=== PATIENT | female | born 1950 | race Caucasian/White ===

== ENCOUNTER 2016-11-21 14:48 | Emergency (ER) | payer OTHER ==
[2016-11-21] VITALS (7 sets, daily range): BP systolic 117–139; BP diastolic 57–91; PULSE 70–86; RESP 16–20; TEMP 98.4; O2SAT 97–100
[~2016-11-21] VITALS: Ht 165.1 cm; Wt 89.5 kg
[~2016-11-21 14:48] MED LIST: AMIT1TAB79 PO; AMOX500T PO; ASPI1TAB69 PO; BENZ100 PO; CARV3.125 PO; ESTR0.5T PO; FENO1TAB76 PO; IPRASOL INH; MEDR4PAK PO; MELO-1 PO; PROT40TA PO; SIMV40TA PO; ZANA4CAP PO
[2016-11-21] MEDS ORDERED: LEVA750T PO (15:15)
--- NOTE | 2016-11-21 15:40 | PD ---
HPI Chief Complaint: Respiratory Symptoms Time Seen by Provider: 15:15 Travel History International Travel<30 days: No Contact w/Intl Traveler<30days: No Traveled to known affect area: No History of Present Illness HPI 66yo F with PMH of COPD and fibromyalgia presents to the ED with multiple complaints today. Pt states she just does not feel well and has been to her PMD Dr. Leon multiple times. Pt was prescribed levaquin and states today is her 7th day. Pt states she is always sob but have been coughing more lately. + Throat pain with cough. +Diffuse chest pain for 2 weeks that has been intermittently there. Pain is worst while lying down. Pt also with suprapubic abdominal pain at homes. +Nausea. Denies any fever, vomiting, focal weakness or numbness. Pt does not know why she was on levaquin. Pt is not on any oxygen at home. PFSH Past Medical History Hx Anticoagulant Therapy: Yes (81 MG ASPIRIN, DAILY) Arthritis: Yes (KNEES AND HIPS) Autoimmune Disease: No Blood Disorders: No Anxiety: Yes Depression: Yes Heart Rhythm Problems: No Cancer: No Cardiac Catheterization: Yes Cardiovascular Problems: Yes (HTN) High Cholesterol: Yes Chemotherapy: No Chest Pain: Yes Congestive Heart Failure: No COPD: Yes Cerebrovascular Accident: No Diabetes: No Diminished Hearing: No Diverticulitis: Yes Endocrine: No Fibromyalgia: Yes Gastrointestinal Disorders: Yes GERD: No Genitourinary: Yes (occas. incon of urine) Headaches: Yes Hepatitis: No Hiatal Hernia: Yes Hypertension: Yes Immune Disorder: No Implanted Vascular Access Dvce: Yes Musculoskeletal: Yes Neurologic: Yes Psychiatric: Yes Respiratory: Yes (recent bronchitis) Immunizations Current: Yes Myocardial Infarction: No Radiation Therapy: No Seizures: No Ulcer: No Tetanus Vaccination: Unknown Influenza Vaccination: No PNEUMOCCOCAL Vaccine (Year): 1 ?: Not Menopausal: Yes Past Surgical History Abdominal Surgery: Yes (GALLBLADDER) AICD: No Cardiac Surgery: No Cholecystectomy: Yes Coronary Artery Bypass Graft: No Ear Surgery: No Endocrine Surgery: No Eye Surgery: No Genitourinary Surgery: Yes (ERCP) Gynecologic Surgery: No Hysterectomy: Yes Joint Replacement: Yes (RT KNEE) Neurologic Surgery: No Oral Surgery: Yes (TONSILLECTOMY) Pacemaker: No Thoracic Surgery: No Tonsillectomy: Yes Other Surgery: Yes (bilat knee ) Social History Alcohol Use: Yes (RARELY beer) Tobacco Use: No (quit 30 years ago) Substance Use: No Allergies-Medications (Allergen,Severity, Reaction): Coded Allergies: Robitussin (Verified Allergy, Severe, PASSES OUT, 11/21/16) Uncoded Allergies: ALL TUSSINS (Allergy, Mild, PASSES OUT, 08/11/16) . Reported Meds & Prescriptions Reported Meds & Active Scripts Active Duoneb (Ipratropium-Albuterol Neb) 0.5-2.5 Mg/3 Ml Neb 1 Nebule INH Q6HR NEB Reported Levaquin (Levofloxacin) 750 Mg Tab 750 Mg PO DAILY Meloxicam 15 Mg Tab 15 Mg PO DAILY PRN Zanaflex (Tizanidine HCl) 4 Mg Cap 4 Mg PO HS Estradiol 0.5 Mg Tab 0.5 Mg PO DAILY Aspirin 81 Mg Tabdr 81 Mg PO DAILY Medrol Dosepak (Methylprednisolone) 4 Mg Dspk 4 Mg PO DIRECTED Per Pharmacist direction Tessalon Perles (Benzonatate) 100 Mg Cap 100 Mg PO TID PRN Coreg (Carvedilol) Unknown Strength Tab Unknown Dose PO BID Tricor (Fenofibrate) Unknown Strength Tab Unknown Dose PO DAILY Tke with food. Protonix (Pantoprazole Sodium) 40 Mg Tab 40 Mg PO DAILY Simvastatin 40 Mg Tab 40 Mg PO HS Review of Systems Except as stated in HPI: all other systems reviewed are Neg Physical Exam Narrative GENERAL: 66yo F anxious appearing. SKIN: Warm and dry. HEAD: Atraumatic. Normocephalic. EYES: Pupils equal and round. No scleral icterus. No injection or drainage. ENT: No nasal bleeding or discharge. Mucous membranes pink and moist. NECK: Trachea midline. No JVD. CARDIOVASCULAR: Regular rate and rhythm. No murmur appreciated. RESPIRATORY: No accessory muscle use. Clear to auscultation. Breath sounds equal bilaterally. GASTROINTESTINAL: Abdomen soft, non-tender, nondistended. MUSCULOSKELETAL: No obvious deformities. No clubbing. No cyanosis. No edema. NEUROLOGICAL: Awake and alert. No obvious cranial nerve deficits. Motor grossly within normal limits. Normal speech. Data Data Last Documented VS Vital Signs Date Time Temp Pulse Resp B/P Pulse Ox O2 Delivery O2 Flow Rate FiO2 11/21/16 15:20 98 Nasal Cannula 2 11/21/16 15:10 16 11/21/16 14:52 98.4 75 117/57 Orders Complete Blood Count With Diff (11/21/16 15:35) Basic Metabolic Panel (Bmp) (11/21/16 15:35) B-Type Natriuretic Peptide (11/21/16 15:35) Act Partial Throm Time (Ptt) (11/21/16 15:35) Prothrombin Time / Inr (Pt) (11/21/16 15:35) Ckmb (Isoenzyme) Profile (11/21/16 15:35) Troponin I (11/21/16 15:35) Blood Culture (11/21/16 15:35) Iv Access Insert/Monitor (11/21/16 15:35) Electrocardiogram (11/21/16 15:35) Ecg Monitoring (11/21/16 15:35) Oximetry (11/21/16 15:35) Oxygen Administration (11/21/16 15:35) Chest, Single Ap (11/21/16 15:35) Sodium Chloride 0.9% Flush (Ns Flush) (11/21/16 15:45) Methylprednisolone So Succ Inj (Solumedr (11/21/16 15:45) Albuterol-Ipratropium Neb (Duoneb Neb) (11/21/16 15:45) Urinalysis - C+S If Indicated (11/21/16 15:35) Lactic Acid Sepsis Protocol (11/21/16 15:45) Lorazepam (Ativan) (11/21/16 17:00) Ketorolac Inj (Toradol Inj) (11/21/16 17:00) Labs Laboratory Tests Test 11/21/16 11/21/16 15:45 17:15 White Blood Count 3.9 TH/MM3 Red Blood Count 4.79 MIL/MM3 Hemoglobin 14.6 GM/DL Hematocrit 43.4 % Mean Corpuscular Volume 90.7 FL Mean Corpuscular Hemoglobin 30.5 PG Mean Corpuscular Hemoglobin 33.7 % Concent Red Cell Distribution Width 11.9 % Platelet Count 153 TH/MM3 Mean Platelet Volume 9.5 FL Neutrophils (%) (Auto) 77.5 % Lymphocytes (%) (Auto) 6.0 % Monocytes (%) (Auto) 7.2 % Eosinophils (%) (Auto) 8.9 % Basophils (%) (Auto) 0.4 % Neutrophils # (Auto) 3.1 TH/MM3 Lymphocytes # (Auto) 0.2 TH/MM3 Monocytes # (Auto) 0.3 TH/MM3 Eosinophils # (Auto) 0.3 TH/MM3 Basophils # (Auto) 0.0 TH/MM3 CBC Comment DIFF FINAL Differential Comment Prothrombin Time 11.8 SEC Prothromb Time International 1.1 RATIO Ratio Activated Partial 29.2 SEC Thromboplast Time Sodium Level 141 MEQ/L Potassium Level 3.5 MEQ/L Chloride Level 106 MEQ/L Carbon Dioxide Level 23.5 MEQ/L Anion Gap 12 MEQ/L Blood Urea Nitrogen 12 MG/DL Creatinine 0.86 MG/DL Estimat Glomerular Filtration 66 ML/MIN Rate Random Glucose 106 MG/DL Lactic Acid Level 1.0 mmol/L Calcium Level 8.7 MG/DL Total Creatine Kinase 89 U/L Troponin I LESS THAN 0.02 NG/ML B-Type Natriuretic Peptide 33 PG/ML Urine pH 5.5 Urine Protein TRACE mg/dL Urine Glucose (UA) NEG mg/dL Urine Ketones TRACE mg/dL Urine Occult Blood NEG Urine Nitrite NEG Urine Bilirubin SMALL Urine Leukocyte Esterase NEG MDM Medical Decision Making Medical Screen Exam Complete: Yes Emergency Medical Condition: Yes Interpretation(s) EKG: NSR 72bpm. Normal axis. Poor baseline. Q wave III. Laboratory Tests Test 11/21/16 11/21/16 15:45 17:15 White Blood Count 3.9 TH/MM3 (4.0-11.0) Red Blood Count 4.79 MIL/MM3 (4.00-5.30) Hemoglobin 14.6 GM/DL (11.6-15.3) Hematocrit 43.4 % (35.0-46.0) Mean Corpuscular Volume 90.7 FL (80.0-100.0) Mean Corpuscular Hemoglobin 30.5 PG (27.0-34.0) Mean Corpuscular Hemoglobin 33.7 % Concent (32.0-36.0) Red Cell Distribution Width 11.9 % (11.6-17.2) Platelet Count 153 TH/MM3 (150-450) Mean Platelet Volume 9.5 FL (7.0-11.0) Neutrophils (%) (Auto) 77.5 % (16.0-70.0) Lymphocytes (%) (Auto) 6.0 % (9.0-44.0) Monocytes (%) (Auto) 7.2 % (0.0-8.0) Eosinophils (%) (Auto) 8.9 % (0.0-4.0) Basophils (%) (Auto) 0.4 % (0.0-2.0) Neutrophils # (Auto) 3.1 TH/MM3 (1.8-7.7) Lymphocytes # (Auto) 0.2 TH/MM3 (1.0-4.8) Monocytes # (Auto) 0.3 TH/MM3 (0-0.9) Eosinophils # (Auto) 0.3 TH/MM3 (0-0.4) Basophils # (Auto) 0.0 TH/MM3 (0-0.2) CBC Comment DIFF FINAL Differential Comment Prothrombin Time 11.8 SEC (9.8-11.6) Prothromb Time International 1.1 RATIO Ratio Activated Partial 29.2 SEC Thromboplast Time (24.3-30.1) Sodium Level 141 MEQ/L (136-145) Potassium Level 3.5 MEQ/L (3.5-5.1) Chloride Level 106 MEQ/L (98-107) Carbon Dioxide Level 23.5 MEQ/L (21.0-32.0) Anion Gap 12 MEQ/L (5-15) Blood Urea Nitrogen 12 MG/DL (7-18) Creatinine 0.86 MG/DL (0.50-1.00) Estimat Glomerular Filtration 66 ML/MIN (>89) Rate Random Glucose 106 MG/DL (74-106) Lactic Acid Level 1.0 mmol/L (0.4-2.0) Calcium Level 8.7 MG/DL (8.5-10.1) Total Creatine Kinase 89 U/L (26-192) Troponin I LESS THAN 0.02 NG/ML (0.02-0.05) B-Type Natriuretic Peptide 33 PG/ML (0-100) Urine pH 5.5 (5.0-8.5) Urine Protein TRACE mg/dL (NEG-TRACE) Urine Glucose (UA) NEG mg/dL (NEG) Urine Ketones TRACE mg/dL (NEG) Urine Occult Blood NEG (NEG) Urine Nitrite NEG (NEG) Urine Bilirubin SMALL (NEG) Urine Leukocyte Esterase NEG (NEG) Last Impressions Chest X-Ray 11/21/16 3143 Signed Impressions: Service Date/Time: Monday, November 21, 2016 15:49 - CONCLUSION: No acute disease. Toym Coley Jr., MD Differential Diagnosis Anxiety vs. COPD exacerbation vs. Pneumonia vs. ACS Narrative Course 66yo F with fibromyalgia and COPD here with multiple complaints. Pt has close follow up with PMD and just went yesterday. She was saturating well but wanted 2L NC and states she feels better with it. Pt given duonebs x3 and methylprednisolone 60mg IV. Pt states she feels better after the treatment. O2sat is 98% on RA. Labs reviewed, WBC low at 3.9. BMP unremarkable. Lactic acid 1.0. BNP 33. Troponin is negative. CXR negative. Pt reevaluated at bedside, was tearful and felt something is wrong. [place] that this may be anxiety so ativan 0.5mg PO given. UA showed trace ketone. Negative leukocyte and nitrite. Pt reevaluated after ativan and toradol and feels much better. Pain has resolved and wants to go home. Lungs are still clear, will give few days of prednisone and ventolin refill. Return precautions given. Diagnosis Primary Impression: Viral bronchitis Patient Instructions: General Instructions Departure Forms: Tests/Procedures Additional Instructions: Please follow up with your PMD in 1-2 days. Return to the ED if symptoms worsen. Med/Other Pt SpecificInfo: Prescription(s) given Scripts Albuterol 18 GM Inh (Ventolin Hfa 18 GM Inh)90 Mcg/Act Aer2 Puff INH Q4H PRN ( SHORTNESS OF BREATH) #1 INHALER Ref 0 Prov:EndyGissell DO 11/21/16 Prednisone 20 Mg Tab20 Mg PO BID 5 Days Ref 0 Prov:Gissell Schumacher DO 11/21/16 Disposition: 01 DISCHARGE HOME Condition: Stable SchumacherGissell denise Nov 21, 2016 15:40
[2016-11-21] MEDS ORDERED: methylPREDNISolone SOD SUCC 125 MG/2 ML VIAL IVP ONE (15:45)
[2016-11-21] MEDS ORDERED: SODIUM CHLORIDE 0.9% FLUSH 5 ML FLUSH IVF PRN (15:45)
[2016-11-21] MEDS: RESP: ALBUTEROL 2.5 MG/IPRATROPIUM 0.5 MG NEB (SCH) INH ×3 (15:49→15:56)
[2016-11-21 16:01] LABS: AUTOMATED NEUTROPHIL # 3.1 TH/MM3 (1.8-7.7); BASOPHIL % 0.4 % (0.0-2.0); EOSINOPHIL # 0.3 TH/MM3 (0-0.4); EOSINOPHIL % 8.9 % (0.0-4.0); HEMATOCRIT 43.4 % (35.0-46.0); LYMPHOCYTE # 0.2 TH/MM3 (1.0-4.8); MEAN CELL VOLUME 90.7 FL (80.0-100.0); MEAN CORPUSCULAR HEMOGLOBIN 30.5 PG (27.0-34.0); MEAN CORPUSCULAR HGB CONC 33.7 % (32.0-36.0); MONO % 7.2 % (0.0-8.0); NEUT % 77.5 % (16.0-70.0); PLATELET COUNT 153 TH/MM3 (150-450); RED BLOOD COUNT 4.79 MIL/MM3 (4.00-5.30); RED CELL DISTRIBUTION WIDTH 11.9 % (11.6-17.2); WHITE BLOOD COUNT 3.9 TH/MM3 (4.0-11.0)
[2016-11-21 16:03] LABS: CHLORIDE 106 MEQ/L (98-107); POTASSIUM 3.5 MEQ/L (3.5-5.1); SODIUM (NA) 141 MEQ/L (136-145)
[2016-11-21 16:06] LABS: ANION GAP 12 MEQ/L (5-15); BICARBONATE 23.5 MEQ/L (21.0-32.0); BLOOD UREA NITROGEN 12 MG/DL (7-18)
[2016-11-21 16:08] LABS: HEMO FLAGS DIFF FINAL
[2016-11-21 16:10] LABS: GLOMERULAR FILTRATION RATE 66 ML/MIN (>89)
[2016-11-21 16:11] LABS: APTT (PATIENT) 29.2 SEC (24.3-30.1); INTERNATIONAL NORMALIZED RATIO 1.1 RATIO; PROTHROMBIN TIME - PATIENT 11.8 SEC (9.8-11.6)
[2016-11-21 16:26] LABS: CREATINE KINASE 89 U/L (26-192)
--- NOTE | 2016-11-21 16:34 | RADHPO ---
EXAM DATE/TIME: 11/21/2016 15:49 [facility] COMPARISON: CHEST SINGLE AP, October 05, 2015, 7:50. INDICATIONS : Short of breath. MEDICAL HISTORY : Hypertension. Chronic obstructive pulmonary disease. Hiatal hernia. SURGICAL HISTORY : None. ENCOUNTER: Initial ACUITY: 1 day PAIN SCORE: 0/10 LOCATION: Bilateral chest FINDINGS: A single view of the chest demonstrates the lungs to be symmetrically aerated without evidence of mas s, infiltrate or effusion. The cardiomediastinal contours are unremarkable. Osseous structures are intact. CONCLUSION: No acute disease. Tomy Coley Jr., MD on November 21, 2016 at 16:33 Board Certified Radiologist. This report was verified electronically.
[2016-11-21] MEDS ORDERED: KETOROLAC TROMETHAMINE 30 MG/ML (IVP) VIAL IV PUSH ONE (17:00)
[2016-11-21] MEDS ORDERED: LORazepam 0.5 MG TAB PO ONE (17:00)
[2016-11-21 17:40] LABS: BLOOD, URINE NEG (NEG); GLUCOSE,URINE NEG (NEG); KETONE, URINE TRACE mg/dL (NEG); NITRITE,URINE NEG (NEG); PH, URINE 5.5 (5.0-8.5)
[2016-11-21 17:49] LABS: URINE COLOR AMBER (YELLW/STRAW)
[2016-11-21 17:50] LABS: COMMENT (UR) CULT NOT INDICATED; CULTURE IF INDICATED CULT NOT INDICATED; RBC, URINE 0-3 /hpf (0-3); SQUAMOUS EPITHELIAL CELL URINE 0-5 /hpf (0-5)
[2016-11-21] MEDS ORDERED: VENTAER INH (17:55)
[2016-11-21] MEDS ORDERED: PRED20 PO (17:55)
--- NOTE | 2016-11-21 22:49 | EKG ---
Date Performed: 11/21/2016 Time Performed: 16:23:04 PTAGE: 66 years EKG: Sinus rhythm Inferior ST changes are nonspecific Borderline ECG PREVIOUS TRACING : 06/11/2016 17.33 Compared to the previous tracing, rate has increased DOCTOR: Arpan Go Interpretating Date/Time 11/21/2016 22:47:57
== END 2016-11-21 18:10 | disposition home or self-care (01) ==
LOC: PHED 14:48
DX: J20.8 Acute bronchitis due to other specified organisms (principal); E78.00 Pure hypercholesterolemia, unspecified; F41.8 Other specified anxiety disorders; I10 Essential (primary) hypertension; M79.7 Fibromyalgia; J44.0 Chronic obstructive pulmonary disease with (acute) lower respiratory infection; Z79.82 Long term (current) use of aspirin
CPT/HCPCS: 71010; 80048; 81001; 82550; 83605; 83880; 84484; 85025; 85610; 85730; 87040; 93005; 94640; 94664; 96374; 96375; 99284; J1885; J2930

== ENCOUNTER 2017-03-30 18:52 | Emergency (ER) | payer OTHER ==
[~2017-03-30] VITALS: Ht 162.6 cm; Wt 88.0 kg
[~2017-03-30 18:52] MED LIST changes: -AMIT1TAB79 PO; -AMOX500T PO; +LEVA750T PO; +PRED20 PO; +VENTAER INH
[2017-03-30 19:10] VITALS: BP 124/74; PULSE 84; RESP 20; TEMP 98.4; O2SAT 96
[2017-03-30] MEDS ORDERED: AMLO5TAB2 PO (19:28)
[2017-03-30] MEDS ORDERED: VOLT100T (19:28)
[2017-03-30] MEDS ORDERED: ENAL20TA PO (19:28)
[2017-03-30] MEDS ORDERED: TRAM50TA PO (19:28)
[2017-03-30] MEDS ORDERED: OXYB10TA PO (19:28)
--- NOTE | 2017-03-30 19:59 | PD ---
HPI Chief Complaint: Injury Time Seen by Provider: 19:30 Travel History International Travel<30 days: No Contact w/Intl Traveler<30days: No Traveled to known affect area: No History of Present Illness HPI 66-year-old female presents emergency department for evaluation of left foot pain. Patient reports that she was walking barefoot when she walked into a piece of furniture stubbing the left fifth toe. She reports that the toe was dislocated which she self reduced. She now has pain within the entire left foot. She denies numbness or tingling of the foot. She reports pain within the mid foot and left small toe. The pain is constant, nonradiating, aggravated by weightbearing and movement, no alleviating factors, severity 6 out of 10. PFSH Past Medical History Hx Anticoagulant Therapy: Yes (81 MG ASPIRIN, DAILY) Arthritis: Yes (KNEES AND HIPS) Autoimmune Disease: No Blood Disorders: No Anxiety: Yes Depression: Yes Heart Rhythm Problems: No Cancer: No Cardiac Catheterization: Yes Cardiovascular Problems: Yes (HTN) High Cholesterol: Yes Chemotherapy: No Chest Pain: Yes Congestive Heart Failure: No COPD: Yes Cerebrovascular Accident: No Diabetes: No Diminished Hearing: No Diverticulitis: Yes Endocrine: No Fibromyalgia: Yes Gastrointestinal Disorders: Yes GERD: No Genitourinary: Yes (occas. incon of urine) Headaches: Yes Hepatitis: No Hiatal Hernia: Yes Hypertension: Yes Immune Disorder: No Implanted Vascular Access Dvce: Yes Musculoskeletal: Yes Neurologic: Yes Psychiatric: Yes Respiratory: Yes (recent bronchitis) Immunizations Current: Yes Myocardial Infarction: No Radiation Therapy: No Seizures: No Ulcer: No PNEUMOCCOCAL Vaccine (Year): 1 Menopausal: Yes Past Surgical History Abdominal Surgery: Yes (GALLBLADDER) AICD: No Cardiac Surgery: No Cholecystectomy: Yes Coronary Artery Bypass Graft: No Ear Surgery: No Endocrine Surgery: No Eye Surgery: No Genitourinary Surgery: Yes (ERCP) Gynecologic Surgery: No Hysterectomy: Yes Joint Replacement: Yes (RT KNEE) Neurologic Surgery: No Oral Surgery: Yes (TONSILLECTOMY) Pacemaker: No Thoracic Surgery: No Tonsillectomy: Yes Other Surgery: Yes (bilat knee ) Social History Alcohol Use: Yes (RARELY beer) Tobacco Use: No (quit 30 years ago) Substance Use: No Allergies-Medications (Allergen,Severity, Reaction): Coded Allergies: Robitussin (Verified Allergy, Severe, PASSES OUT, 03/30/17) Uncoded Allergies: ALL TUSSINS (Allergy, Mild, PASSES OUT, 08/11/16) . Reported Meds & Prescriptions Reported Meds & Active Scripts Active Ventolin Hfa 18 GM Inh (Albuterol Sulfate) 90 Mcg/Act Aer 2 Puff INH Q4H PRN Duoneb (Ipratropium-Albuterol Neb) 0.5-2.5 Mg/3 Ml Neb 1 Nebule INH Q6HR NEB Reported Tramadol (Tramadol HCl) 50 Mg Tab 50 Mg PO Q6H PRN Oxybutynin ER 24 HR (Oxybutynin Chloride) 10 Mg Tab 20 Mg PO BID Voltaren-Xr (Diclofenac Sodium) 100 Mg Tab.er.24h Unknown Dose Enalapril (Enalapril Maleate) 20 Mg Tab 20 Mg PO DAILY Amlodipine (Amlodipine Besylate) 5 Mg Tab 5 Mg PO DAILY Meloxicam 15 Mg Tab 15 Mg PO DAILY PRN Estradiol 0.5 Mg Tab 0.5 Mg PO DAILY Tricor (Fenofibrate) Unknown Strength Tab 160 Mg PO DAILY Tke with food. Protonix (Pantoprazole Sodium) 40 Mg Tab 40 Mg PO DAILY Review of Systems General / Constitutional: No: Fever Eyes: No: Visual changes HENT: No: Headaches Cardiovascular: No: Chest Pain or Discomfort Respiratory: No: Shortness of Breath Gastrointestinal: No: Abdominal Pain Genitourinary: No: Dysuria Musculoskeletal: Positive: Other (left foot pain) Physical Exam Narrative GENERAL: Well-nourished, well-developed patient. SKIN: Focused skin assessment warm/dry. HEAD: Normocephalic. EYES: No scleral icterus. No injection or drainage. NECK: Supple, trachea midline. No JVD or lymphadenopathy. CARDIOVASCULAR: Regular rate and rhythm without murmurs, gallops, or rubs. RESPIRATORY: Breath sounds equal bilaterally. No accessory muscle use. GASTROINTESTINAL: Abdomen soft, non-tender, nondistended. MUSCULOSKELETAL: No cyanosis, or edema. Left foot: Mild swelling of the left small toe and mid foot. The area is tender to palpation. 2+ distal pulses. Extremity is neurovascular intact. Data Data Last Documented VS Vital Signs Date Time Temp Pulse Resp B/P Pulse Ox O2 Delivery O2 Flow Rate FiO2 03/30/17 19:10 98.4 84 20 124/74 96 Orders Foot, Complete ([id number]) (03/30/17 ) [facility] Medical Decision Making Medical Screen Exam Complete: Yes Emergency Medical Condition: Yes Differential Diagnosis Toe fracture versus contusion versus sprain Narrative Course 66 year old female presents emergency department for evaluation of left foot and toe pain status post stubbing the toe on a piece of furniture. On exam the patient has mild swelling of the left fifth toe. X-ray pending X-ray of left foot fracture of the left proximal phalanx. Patient placed in postop boot, given crutches, instructed to follow up with orthopedic/podiatry this week. Diagnosis Primary Impression: Fracture of proximal phalanx of toe Referrals: Orthopedist Engineer First Assistant Additional Instructions: With a postop boot. He is crutches for weightbearing. Ice and elevate the extremity. Take the pain medication as prescribed. Follow-up with orthopedic or podiatry this week. Return to emergency department if he had no worsening symptoms. Scripts Hydrocodone-Acetaminophen ([place])5-325 mg Tab1 Tab PO Q6H PRN (PAIN) #12 TAB Ref 0 Prov:Flaquita Yuen 03/30/17 Disposition: 01 DISCHARGE HOME Condition: Stable Flaquita Yuen Mar 30, 2017 19:59
--- NOTE | 2017-03-30 20:33 | RADRPT ---
EXAM DATE/TIME: 03/30/2017 19:48 [facility] COMPARISON: No previous studies available for comparison. INDICATIONS : Left foot pain. MEDICAL HISTORY : Hypertension. Chronic obstructive pulmonary disease. SURGICAL HISTORY : None. ENCOUNTER: Initial ACUITY: 1 day PAIN SCORE: 10/10 LOCATION: Left Foot FINDINGS: There is no oblique fracture through the mid and distal aspect of the fifth proximal phalanx. The dis sunni fragment is angulated laterally. The fracture does not appear to extend into the joint space. CONCLUSION: Fracture at the fifth proximal phalanx. Goldy Morris MD on March 30, 2017 at 20:30 Board Certified Radiologist. This report was verified electronically.
[2017-03-30] MEDS ORDERED: NORC5TAB PO (20:41)
[2017-03-30] MEDS ORDERED: ACETAMINOPHEN/HYDROcodone 325 MG/5 MG TAB PO ONE (21:00)
== END 2017-03-30 21:34 | disposition home or self-care (01) ==
LOC: PHEFT 18:52
DX: S92.512A Displaced fracture of proximal phalanx of left lesser toe(s), initial encounter for closed fracture (principal); W22.03XA Walked into furniture, initial encounter; Y93.9 Activity, unspecified; Y92.9 Unspecified place or not applicable; Y99.9 Unspecified external cause status
CPT/HCPCS: 73630; 99283

== ENCOUNTER 2017-11-06 16:40 | Inpatient (IN) | payer OTHER, MEDICARE ==
[2017-11-06] VITALS (12 sets, daily range): BP systolic 108–195; BP diastolic 60–96; PULSE 77–162; RESP 16–20; TEMP 98.3–98.9; O2SAT 95–99
[~2017-11-06] VITALS: Ht 165.1 cm; Wt 85.2 kg
[~2017-11-06 16:40] MED LIST changes: +AMLO5TAB2 PO; -ASPI1TAB69 PO; -BENZ100 PO; -CARV3.125 PO; +ENAL20TA PO; -LEVA750T PO; -MEDR4PAK PO; -MELO-1 PO; +MELO15TA20 PO; +NORC5TAB PO; +OXYB10TA PO; -PRED20 PO; -SIMV40TA PO; +TRAM50TA PO; +VOLT100T; -ZANA4CAP PO
[2017-11-06] MEDS ORDERED: DILTIAZEM HCL 25 MG/5 ML VIAL IV ONE ×2 (17:00→17:30)
[2017-11-06] MEDS ORDERED: SODIUM CHLORIDE 0.9% FLUSH 10 ML FLUSH IVF PRN (17:00)
[2017-11-06] MEDS ORDERED: SODIUM CHLORIDE 0.9% FLUSH 10 ML FLUSH IV FLUSH PRN ×3 (17:00→18:15)
--- NOTE | 2017-11-06 17:09 | PD ---
HPI Chief Complaint: Cardiac Complaint Time Seen by Provider: 16:48 Travel History International Travel<30 days: No Contact w/Intl Traveler<30days: No History of Present Illness HPI 67 y/o female presents with palpitations shortly prior to arrival. She states she went to her primary doctor today because she felt lightheaded after getting exposed to Cl[place] and he checked her out and sent her home. She states shortly after her appointment today she developed the symptoms. She denies prior history of A. fib. She states that she has had a heart catheter before but does not follow with the second behavioral health associate. She denies any chest pain or other specific complaints at this time. Quality is palpitations. Severity is up into the 180s. She does note receiving Cardizem in the past but states it made her heart rate dropped in the 40s. PFSH Past Medical History Hx Anticoagulant Therapy: Yes (81 MG ASPIRIN, DAILY) Arthritis: Yes (KNEES AND HIPS) Autoimmune Disease: No Blood Disorders: No Anxiety: Yes Depression: Yes Heart Rhythm Problems: No Cancer: No Cardiac Catheterization: Yes Cardiovascular Problems: Yes (HTN) High Cholesterol: Yes Chemotherapy: No Chest Pain: Yes Congestive Heart Failure: No COPD: Yes Cerebrovascular Accident: No Diabetes: No Diminished Hearing: No Diverticulitis: Yes Endocrine: No Fibromyalgia: Yes Gastrointestinal Disorders: Yes GERD: No Genitourinary: Yes (occas. incon of urine) Headaches: Yes Hepatitis: No Hiatal Hernia: Yes Hypertension: Yes Immune Disorder: No Implanted Vascular Access Dvce: Yes Musculoskeletal: Yes Neurologic: Yes Psychiatric: Yes Respiratory: Yes (recent bronchitis) Immunizations Current: Yes Myocardial Infarction: No Radiation Therapy: No Seizures: No Ulcer: No PNEUMOCCOCAL Vaccine (Year): 1 Menopausal: Yes Past Surgical History Abdominal Surgery: Yes (GALLBLADDER) AICD: No Cardiac Surgery: No Cholecystectomy: Yes Coronary Artery Bypass Graft: No Ear Surgery: No Endocrine Surgery: No Eye Surgery: No Genitourinary Surgery: Yes (ERCP) Gynecologic Surgery: No Hysterectomy: Yes Joint Replacement: Yes (RT KNEE) Neurologic Surgery: No Oral Surgery: Yes (TONSILLECTOMY) Pacemaker: No Thoracic Surgery: No Tonsillectomy: Yes Other Surgery: Yes (bilat knee ) Social History Alcohol Use: Yes (RARELY beer) Tobacco Use: No (quit 30 years ago) Substance Use: No Allergies-Medications (Allergen,Severity, Reaction): Coded Allergies: guaifenesin (Unverified Allergy, Severe, PASSES OUT, 05/14/17) Uncoded Allergies: ALL TUSSINS (Allergy, Mild, PASSES OUT, 08/11/16) . Reported Meds & Prescriptions Reported Meds & Active Scripts Active [place] [employer] (Hydrocodone-Acetaminophen) 5-325 mg Tab 1 Tab PO Q6H PRN Ventolin Hfa 18 GM Inh (Albuterol Sulfate) 90 Mcg/Act Aer 2 Puff INH Q4H PRN Duoneb (Ipratropium-Albuterol Neb) 0.5-2.5 Mg/3 Ml Neb 1 Nebule INH Q6HR NEB Reported Tramadol (Tramadol HCl) 50 Mg Tab 50 Mg PO Q6H PRN Oxybutynin ER 24 HR (Oxybutynin Chloride) 10 Mg Tab 20 Mg PO BID Voltaren-Xr (Diclofenac Sodium) 100 Mg Tab.er.24h Unknown Dose Enalapril (Enalapril Maleate) 20 Mg Tab 20 Mg PO DAILY Amlodipine (Amlodipine Besylate) 5 Mg Tab 5 Mg PO DAILY Meloxicam 15 Mg Tab 15 Mg PO DAILY PRN Estradiol 0.5 Mg Tab 0.5 Mg PO DAILY Tricor (Fenofibrate) Unknown Strength Tab 160 Mg PO DAILY Tke with food. Protonix (Pantoprazole Sodium) 40 Mg Tab 40 Mg PO DAILY Review of Systems Except as stated in HPI: all other systems reviewed are Neg Physical Exam Narrative GENERAL: No apparent distress SKIN: Focused skin assessment warm/dry. HEAD: Atraumatic. Normocephalic. EYES: Pupils equal and round. No scleral icterus. No injection or drainage. ENT: No nasal bleeding or discharge. Mucous membranes pink and moist. NECK: Trachea midline. No JVD. CARDIOVASCULAR: irregular rate and rhythm. RESPIRATORY: No accessory muscle use. Clear to auscultation. Breath sounds equal bilaterally. GASTROINTESTINAL: Abdomen nondistended. MUSCULOSKELETAL: No obvious deformities. No clubbing. No cyanosis. No edema. NEUROLOGICAL: Awake and alert. No obvious cranial nerve deficits. Motor grossly within normal limits. Normal speech. PSYCHIATRIC: Appropriate mood and affect; insight and judgment normal. Data Data Last Documented VS Vital Signs Date Time Temp Pulse Resp B/P (MAP) Pulse Ox O2 Delivery O2 Flow Rate FiO2 11/06/17 17:57 124 108/67 11/06/17 17:23 98.3 18 96 11/06/17 16:55 Room Air Orders Orders Electrocardiogram (11/06/17 16:57) B-Type Natriuretic Peptide (11/06/17 16:57) Ckmb (Isoenzyme) Profile (11/06/17 16:57) Complete Blood Count With Diff (11/06/17 16:57) Comprehensive Metabolic Panel (11/06/17 16:57) Magnesium (Mg) (11/06/17 16:57) Prothrombin Time / Inr (Pt) (11/06/17 16:57) Act Partial Throm Time (Ptt) (11/06/17 16:57) Troponin I (11/06/17 16:57) Chest, Single Ap (11/06/17 16:57) Ecg Monitoring (11/06/17 16:57) Bilateral Bp Monitoring (11/06/17 16:57) Iv Access Insert/Monitor (11/06/17 16:57) Oximetry (11/06/17 16:57) Sodium Chloride 0.9% Flush (Ns Flush) (11/06/17 17:00) Sodium Chloride 0.9% Flush (Ns Flush) (11/06/17 17:00) Diltiazem Inj (Cardizem Inj) (11/06/17 17:00) Aspirin (Aspirin) (11/06/17 17:15) Diltiazem Inj (Cardizem Inj) (11/06/17 17:30) Diltiazem Drip Inj Premix (Cardizem Drip (11/06/17 17:30) Sodium Chloride 0.9% Flush (Ns Flush) (11/06/17 17:30) CKMB (11/06/17 17:00) CKMB% (11/06/17 17:00) Diltiazem Drip Inj Premix (Cardizem Drip (11/06/17 17:45) Sodium Chlor 0.9% 1000 Ml Inj (Ns 1000 M (11/06/17 17:45) Admit Order (Ed Use Only) (11/06/17 18:09) Diltiazem Drip Inj Premix (Cardizem Drip (11/06/17 18:15) Admit To Inpatient (11/06/17 ) Vital Signs (Adult) Q4H (11/06/17 18:14) Activity Oob Ad Tiana (11/06/17 18:14) Diet Heart Healthy (11/06/17 Dinner) Sodium Chloride 0.9% Flush (Ns Flush) (11/06/17 18:15) Sodium Chloride 0.9% Flush (Ns Flush) (11/06/17 21:00) Ondansetron Inj (Zofran Inj) (11/06/17 18:15) Temazepam (Restoril) (11/06/17 18:15) Basic Metabolic Panel (Bmp) (11/07/17 06:00) Complete Blood Count With Diff (11/07/17 06:00) Naloxone Inj (Narcan Inj) (11/06/17 18:15) Sennosides (Senokot) (11/06/17 18:15) Enalapril (Vasotec) (11/07/17 09:00) Meloxicam (Mobic) (11/06/17 18:15) Pantoprazole (Protonix) (11/07/17 09:00) (Nf) Fenofibrate (Tricor) (11/07/17 09:00) (Nf) Oxybutynin Er 24 Hr (11/06/17 21:00) Labs Laboratory Tests Test 11/06/17 17:00 White Blood Count 6.3 TH/MM3 Red Blood Count 4.68 MIL/MM3 Hemoglobin 14.4 GM/DL Hematocrit 42.4 % Mean Corpuscular Volume 90.7 FL Mean Corpuscular Hemoglobin 30.9 PG Mean Corpuscular Hemoglobin Concent 34.0 % Red Cell Distribution Width 11.8 % Platelet Count 217 TH/MM3 Mean Platelet Volume 9.7 FL Neutrophils (%) (Auto) 65.2 % Lymphocytes (%) (Auto) 23.0 % Monocytes (%) (Auto) 6.1 % Eosinophils (%) (Auto) 3.9 % Basophils (%) (Auto) 1.8 % Neutrophils # (Auto) 4.2 TH/MM3 Lymphocytes # (Auto) 1.4 TH/MM3 Monocytes # (Auto) 0.4 TH/MM3 Eosinophils # (Auto) 0.2 TH/MM3 Basophils # (Auto) 0.1 TH/MM3 CBC Comment DIFF FINAL Differential Comment Prothrombin Time 10.2 SEC Prothromb Time International Ratio 1.0 RATIO Activated Partial Thromboplast Time 27.8 SEC Blood Urea Nitrogen 19 MG/DL Creatinine 0.97 MG/DL Random Glucose 149 MG/DL Total Protein 7.7 GM/DL Albumin 3.9 GM/DL Calcium Level 9.6 MG/DL Magnesium Level 2.2 MG/DL Alkaline Phosphatase 145 U/L Aspartate Amino Transf (AST/SGOT) 45 U/L Alanine Aminotransferase (ALT/SGPT) 38 U/L Total Bilirubin 0.4 MG/DL Sodium Level 145 MEQ/L Potassium Level 3.5 MEQ/L Chloride Level 113 MEQ/L Carbon Dioxide Level 25.3 MEQ/L Anion Gap 7 MEQ/L Estimat Glomerular Filtration Rate 57 ML/MIN Total Creatine Kinase 172 U/L Creatine Kinase MB 2.1 NG/ML Troponin I LESS THAN 0.02 NG/ML B-Type Natriuretic Peptide 25 PG/ML MDM Medical Decision Making Medical Screen Exam Complete: Yes Emergency Medical Condition: Yes Medical Record Reviewed: Yes (Past history confirmed, cath from 2008 notes mild disease) Interpretation(s) EKG shows A. fib at [address] depression V2 through V6 without ST segment elevation CBC & BMP Diagram 11/06/17 17:00 Total Protein 7.7, Albumin 3.9, Calcium Level 9.6, Magnesium Level 2.2, Alkaline Phosphatase 145 H, Aspartate Amino Transf (AST/SGOT) 45 H, Alanine Aminotransferase (ALT/SGPT) 38, Total Bilirubin 0.4 Last 24 hours Impressions Chest X-Ray 11/06/17 1657 Signed Impressions: Service Date/Time: Monday, November 06, 2017 17:03 - CONCLUSION: No acute disease. Guille Milner MD FACR Differential Diagnosis A. fib with RVR, SVT, electrolyte abnormality, anemia.... Narrative Course We will check blood work, EKG, chest x-ray and dose with Cardizem and reevaluate Initial bolus of 20 mg and heart rate unchanged. Will now bolus with 30 mg and order drip after a total of 40mg of iv bolus heart rate 110 and sbp 100, will order ivf and start drip and admit to the hospital for further care Critical Care Narrative Aggregate critical care time was 31 minutes. Time to perform other separately billable procedures was not included in the critical care time. My time did not include minutes spent treating any other patients simultaneously or on activities that did not directly contribute to the patient's treatment. The services I provided to this patient were to treat and/or prevent clinically significant deterioration that could result in: Shock, I provided critical care services requiring my management, as noted below: Chart data review, documentation time, medication orders and management, vital sign assessments/reviewing monitor data, ordering and reviewing lab tests, ordering and interpreting/reviewing x-rays and diagnostic studies, care of the patient and discussion of the patient with the admitting physicians. Physician Communication Physician Communication dr plata agrees to admit Diagnosis Primary Impression: Atrial fibrillation with RVR Admitting Information Admitting Physician Requests: Admit Rosa Lainez MD Nov 06, 2017 17:09
[2017-11-06] MEDS ORDERED: ASPIRIN 325 MG TAB PO ONE (17:15)
[2017-11-06 17:18] LABS: CHLORIDE 113 MEQ/L (98-107); SODIUM (NA) 145 MEQ/L (136-145)
[2017-11-06 17:22] LABS: ALBUMIN 3.9 GM/DL (3.4-5.0); AUTOMATED NEUTROPHIL # 4.2 TH/MM3 (1.8-7.7); BASOPHIL # 0.1 TH/MM3 (0-0.2); BASOPHIL % 1.8 % (0.0-2.0); BICARBONATE 25.3 MEQ/L (21.0-32.0); CALCIUM 9.6 MG/DL (8.5-10.1); EOSINOPHIL # 0.2 TH/MM3 (0-0.4); EOSINOPHIL % 3.9 % (0.0-4.0); GLUCOSE,RANDOM 149 MG/DL (74-106); HEMATOCRIT 42.4 % (35.0-46.0); HEMOGLOBIN 14.4 GM/DL (11.6-15.3); LYMPHOCYTE # 1.4 TH/MM3 (1.0-4.8); MAGNESIUM 2.2 MG/DL (1.5-2.5); MEAN CELL VOLUME 90.7 FL (80.0-100.0); MEAN CORPUSCULAR HEMOGLOBIN 30.9 PG (27.0-34.0); MEAN PLATELET VOLUME 9.7 FL (7.0-11.0); MONO % 6.1 % (0.0-8.0); MONOCYTE # 0.4 TH/MM3 (0-0.9); NEUT % 65.2 % (16.0-70.0); PLATELET COUNT 217 TH/MM3 (150-450); RED BLOOD COUNT 4.68 MIL/MM3 (4.00-5.30); RED CELL DISTRIBUTION WIDTH 11.8 % (11.6-17.2); WHITE BLOOD COUNT 6.3 TH/MM3 (4.0-11.0)
[2017-11-06 17:23] LABS: BLOOD UREA NITROGEN 19 MG/DL (7-18)
[2017-11-06 17:25] LABS: ALT (GPT) 38 U/L (10-53); AST (GOT) 45 U/L (15-37); CREATININE 0.97 MG/DL (0.50-1.00); GLOMERULAR FILTRATION RATE 57 ML/MIN (>89)
[2017-11-06 17:27] LABS: TOTAL BILIRUBIN ADULT 0.4 MG/DL (0.2-1.0); TOTAL PROTEIN 7.7 GM/DL (6.4-8.2)
[2017-11-06 17:28] LABS: ALKALINE PHOSPHATASE 145 U/L (45-117)
[2017-11-06 17:30] LABS: TROPONIN I LESS THAN 0.02 NG/ML (0.02-0.05)
[2017-11-06] MEDS ORDERED: DILTIAZEM DRIP INJ PREMIX 125 ML IV PRN ×3 (17:30→18:15)
--- NOTE | 2017-11-06 17:40 | RADRPT ---
EXAM DATE/TIME: 11/06/2017 17:03 [facility] COMPARISON: CHEST SINGLE AP, November 21, 2016, 15:49. INDICATIONS : Chest pain, irregular heart rate for 2 hours MEDICAL HISTORY : Hypertension. Chronic obstructive pulmonary disease. Hiatal hernia SURGICAL HISTORY : None. ENCOUNTER: Initial ACUITY: 1 day PAIN SCORE: 10/10 LOCATION: Left chest FINDINGS: A single view of the chest demonstrates the lungs to be symmetrically aerated without evidence of mas s, infiltrate or effusion. The cardiomediastinal contours are unremarkable. Osseous structures are intact. CONCLUSION: No acute disease. Guille Milner MD FACR on November 06, 2017 at 17:38 Board Certified Radiologist. This report was verified electronically.
[2017-11-06 17:45] LABS: PROTHROMBIN TIME - PATIENT 10.2 SEC (9.8-11.6)
[2017-11-06] MEDS ORDERED: SODIUM CHLOR 0.9% 1000 ML INJ 1,000 ML IV ONE (17:45)
[2017-11-06] MEDS ORDERED: NALOXONE HCL 0.4 MG/ML AMP IV PUSH PRN (18:15)
[2017-11-06] MEDS ORDERED: MELOXICAM 15 MG TAB PO PRN (18:15)
[2017-11-06] MEDS ORDERED: SENNOSIDES 8.6 MG TAB PO PRN (18:15)
[2017-11-06] MEDS ORDERED: ONDANSETRON HCL 4 MG/2 ML VIAL IVP PRN (18:15)
[2017-11-06] MEDS ORDERED: RANI300T PO (19:02)
[2017-11-06] MEDS: SODIUM CHLORIDE 0.9% FLUSH 10 ML FLUSH IV FLUSH SCH (21:46)
[2017-11-06] MEDS ORDERED: FAMOTIDINE 20 MG TAB PO ONE (22:45)
[2017-11-07] VITALS (17 sets, daily range): BP systolic 107–145; BP diastolic 46–74; PULSE 55–120; RESP 14–35; TEMP 97.4–98.5; O2SAT 97–98
[2017-11-07] MEDS: TEMAZEPAM 15 MG CAP PO PRN ×2 (00:01→19:56)
[2017-11-07 04:40] LABS: AUTOMATED NEUTROPHIL # 3.3 TH/MM3 (1.8-7.7); BASOPHIL # 0.1 TH/MM3 (0-0.2); BASOPHIL % 1.4 % (0.0-2.0); EOSINOPHIL # 0.3 TH/MM3 (0-0.4); EOSINOPHIL % 4.9 % (0.0-4.0); HEMOGLOBIN 12.6 GM/DL (11.6-15.3); LYMPHOCYTE # 1.2 TH/MM3 (1.0-4.8); MEAN CELL VOLUME 92.4 FL (80.0-100.0); MEAN CORPUSCULAR HEMOGLOBIN 30.6 PG (27.0-34.0); MEAN CORPUSCULAR HGB CONC 33.2 % (32.0-36.0); MEAN PLATELET VOLUME 8.8 FL (7.0-11.0); MONOCYTE # 0.5 TH/MM3 (0-0.9); NEUT % 61.7 % (16.0-70.0); PLATELET COUNT 183 TH/MM3 (150-450); RED BLOOD COUNT 4.12 MIL/MM3 (4.00-5.30); RED CELL DISTRIBUTION WIDTH 12.1 % (11.6-17.2); WHITE BLOOD COUNT 5.4 TH/MM3 (4.0-11.0)
[2017-11-07 05:04] LABS: BICARBONATE 25.8 MEQ/L (21.0-32.0); CALCIUM 8.6 MG/DL (8.5-10.1); CREATININE 0.71 MG/DL (0.50-1.00)
[2017-11-07] MEDS: DILTIAZEM HCL 30 MG TAB PO SCH ×2 (05:53→11:40)
[2017-11-07] MEDS: ENALAPRIL MALEATE 10 MG TAB PO SCH (07:37)
[2017-11-07] MEDS: TOLTERODINE TARTRATE 4 MG CAP LA PO SCH (07:37)
[2017-11-07] MEDS: PANTOPRAZOLE SOD 40 MG DELAYED RELEASE TAB PO SCH (07:38)
[2017-11-07] MEDS: FENOFIBRATE 145 MG TAB PO SCH (07:38)
[2017-11-07] MEDS: SODIUM CHLORIDE 0.9% FLUSH 10 ML FLUSH IV FLUSH SCH ×2 (07:38→19:29)
[2017-11-07 11:36] LABS: TROPONIN I LESS THAN 0.02 NG/ML (0.02-0.05)
--- NOTE | 2017-11-07 13:30 | HHI.HP ---
[facility]Staff Ad[facility] Diagnosis afib with rvr Diagnoses: Travel History International Travel<30 Days: No Contact w/Intl Traveler <30 Da: No Traveled to Known Affected Are: No History of Present Illness History from patient, ER physician notes, and review medical records. reports she gets frequent palpitiation it just comes and goes a week ago, when she picked up the chlorine bottles, she had blurry vision, and neck pain strain every night, she stated she woke up with pain in the mid epigastric mid sternal area "hernia problem" . She saw GI doc and started zantac and pantoprazole- and seemed to be working, no further pain yesterday, when she was picking up grandagher, palpitiatons came, HR in 150s 160s did not resolve son in law thus brought her here no other symptoms no dehdyration no chagnes in meds recently used to be on coreg but was discontinued in december 2016 because of bradycardia in the 40s (has been taking it for about 10yrs before that) was seeing Dr Stanton and did have stress test in december 2016 Review of Systems Except as stated in HPI: all other systems reviewed are Neg Past Family Social History Past Medical History RLE DVT after knee surgery- but stated US was repeated 2 weeks ago, and xarelto stopped 2 weeks ago, completed it since march 2017 Htn was never told of Afib- but always had palpitations copd kidney stone frequent urination chronically Past Surgical History right knee replaced 11 yrs ago also right knee sx hysterectomy tonsilectomy cholecystectomy Allergies: Coded Allergies: guaifenesin (Unverified Allergy, Severe, PASSES OUT, 05/14/17) Uncoded Allergies: ALL TUSSINS (Allergy, Mild, PASSES OUT, 08/11/16) . Family History dad- chf mom- brain aneurysm, strokes brothers and sisters- dm Social History used to smoke, quit 33 yo social drinker no drugs lives with her daughter and her family Physical Exam Vital Signs Vital Signs Date Time Temp Pulse Resp B/P (MAP) Pulse Ox O2 Delivery O2 Flow Rate FiO2 11/07/17 11:00 68 11/07/17 07:47 69 11/07/17 07:29 97.9 66 28 136/74 (94) 11/07/17 06:00 62 11/07/17 05:00 62 11/07/17 04:19 55 116/57 11/07/17 04:15 58 11/07/17 04:00 98.4 58 14 116/57 (76) 97 11/07/17 04:00 55 11/07/17 02:49 55 102/52 11/07/17 02:16 58 11/07/17 02:00 58 11/07/17 01:00 60 11/07/17 00:00 98.2 120 20 107/46 (66) 97 11/07/17 00:00 120 11/06/17 23:00 86 11/06/17 22:00 98.9 88 19 141/74 (96) 99 11/06/17 21:40 11/06/17 21:30 130 107/42 11/06/17 19:31 77 18 136/72 (93) 97 Room Air 11/06/17 18:50 132 16 108/67 (81) 96 Room Air 11/06/17 18:29 128 16 127/86 (100) 95 Room Air 11/06/17 18:05 110 16 127/91 (103) 96 Room Air 11/06/17 17:57 124 108/67 11/06/17 17:35 101 18 135/60 (85) 97 Room Air 11/06/17 17:25 162 18 195/78 (117) 97 Room Air 11/06/17 17:23 98.3 154 18 195/94 (127) 96 11/06/17 17:10 146 18 166/96 (119) 95 Room Air 11/06/17 16:55 195/94 (127) 166/96 (119) 11/06/17 16:55 Room Air 11/06/17 16:55 20 97 Room Air 11/06/17 16:50 144 16 150/89 (109) 98 Room Air Physical Exam GENERAL: This is a well-nourished, well-developed patient, in no apparent distress. SKIN: No rashes, ecchymoses or lesions. Cool and dry. HEAD: Atraumatic. Normocephalic. No temporal or scalp tenderness. EYES: No scleral icterus. No injection or drainage. ENT: Nose without bleeding, purulent drainage or septal hematoma. Airway patent. NECK: Trachea midline. No JVD Supple, nontender, no meningeal signs. CARDIOVASCULAR: Regular rate and rhythm without murmurs, gallops, or rubs. RESPIRATORY: Clear to auscultation. Breath sounds equal bilaterally. No wheezes , rales, or rhonchi. GASTROINTESTINAL: Abdomen soft, non-tender, nondistended. No guarding. MUSCULOSKELETAL: Extremities without clubbing, cyanosis, or edema. No calf tenderness. NEUROLOGICAL: Awake and alert. Motor and sensory grossly within normal limits. Normal speech. Laboratory Laboratory Tests Test 11/06/17 17:00 11/07/17 04:25 11/07/17 11:00 White Blood Count 6.3 5.4 Red Blood Count 4.68 4.12 Hemoglobin 14.4 12.6 Hematocrit 42.4 38.0 Mean Corpuscular Volume 90.7 92.4 Mean Corpuscular Hemoglobin 30.9 30.6 Mean Corpuscular Hemoglobin Concent 34.0 33.2 Red Cell Distribution Width 11.8 12.1 Platelet Count 217 183 Mean Platelet Volume 9.7 8.8 Neutrophils (%) (Auto) 65.2 61.7 Lymphocytes (%) (Auto) 23.0 23.0 Monocytes (%) (Auto) 6.1 9.0 Eosinophils (%) (Auto) 3.9 4.9 Basophils (%) (Auto) 1.8 1.4 Neutrophils # (Auto) 4.2 3.3 Lymphocytes # (Auto) 1.4 1.2 Monocytes # (Auto) 0.4 0.5 Eosinophils # (Auto) 0.2 0.3 Basophils # (Auto) 0.1 0.1 CBC Comment DIFF FINAL DIFF FINAL Differential Comment Prothrombin Time 10.2 Prothromb Time International Ratio 1.0 Activated Partial Thromboplast Time 27.8 Blood Urea Nitrogen 19 17 Creatinine 0.97 0.71 Random Glucose 149 100 Total Protein 7.7 Albumin 3.9 Calcium Level 9.6 8.6 Magnesium Level 2.2 Alkaline Phosphatase 145 Aspartate Amino Transf (AST/SGOT) 45 Alanine Aminotransferase (ALT/SGPT) 38 Total Bilirubin 0.4 Sodium Level 145 145 Potassium Level 3.5 3.6 Chloride Level 113 113 Carbon Dioxide Level 25.3 25.8 Anion Gap 7 6 Estimat Glomerular Filtration Rate 57 82 Total Creatine Kinase 172 98 Creatine Kinase MB 2.1 Troponin I LESS THAN 0.02 LESS THAN 0.02 B-Type Natriuretic Peptide 25 Result Diagram: 11/07/1742411/07/17424 Caprin VTE Risk Assessment Caprini VTE Risk Assessment: Mod/High Risk (score >= 2) Caprini Risk Assessment Model Point Value = 1 Point Value = 2 Point Value = 3 Point Value = 5 Age 41-60 Minor surgery BMI > 25 kg/m2 Swollen legs Varicose veins or History of unexplained or recurrent spontaneous Oral contraceptives or hormone replacement Sepsis (< 1 month) Serious lung disease, including pneumonia (< 1 month) Abnormal pulmonary function Acute myocardial infarction Congestive heart failure (< 1 month) History of inflammatory bowel disease Medical patient at bed rest Age 61-74 Arthroscopic surgery Major open surgery (> 45 min) Laparoscopic surgery (> 45 min) Malignancy Confined to bed (> 72 hours) Immobilizing plaster cast Central venous access Age >= 75 History of VTE Family history of VTE Factor V Leiden Prothrombin [id number] Lupus anticoagulant Anticardiolipin antibodies Elevated serum homocysteine Heparin-induced thrombocytopenia Other congenital or acquired thrombophilia Stroke (< 1 month) Elective arthroplasty Hip, pelvis, or leg fracture Acute spinal cord injury (< 1 month) Prophylaxis Regimen Total Risk Factor Score Risk Level Prophylaxis Regimen 0-1 Low Early ambulation 2 Moderate Order ONE of the following: *Sequential Compression Device (SCD) *Heparin 5000 units SQ BID 3-4 Higher Order ONE of the following medications: *Heparin 5000 units SQ TID *Enoxaparin/Lovenox 40 mg SQ daily (WT < 150 kg, CrCl > 30 mL/min) *Enoxaparin/Lovenox 30 mg SQ daily (WT < 150 kg, CrCl > 10-29 mL/min) *Enoxaparin/Lovenox 30 mg SQ BID (WT < 150 kg, CrCl > 30 mL/min) AND/OR *Sequential Compression Device (SCD) 5 or more Highest Order ONE of the following medications: *Heparin 5000 units SQ TID (Preferred with Epidurals) *Enoxaparin/Lovenox 40 mg SQ daily (WT < 150 kg, CrCl > 30 mL/min) *Enoxaparin/Lovenox 30 mg SQ daily (WT < 150 kg, CrCl > 10-29 mL/min) *Enoxaparin/Lovenox 30 mg SQ BID (WT < 150 kg, CrCl > 30 mL/min) AND *Sequential Compression Device (SCD) Assessment and Plan Assessment and Plan Impression: A. fib with RVR. No obvious acute cause such as dehydration/blood loss/fevers. Possible underlying chronic A. fib with acute worsening. History of significant symptomatic bradycardia while on Coreg previously. We' ll need to watch for possible sick sinus syndrome. Hypertension RLE DVT after knee surgery- but stated US was repeated 2 weeks ago, and xarelto stopped 2 weeks ago, completed it since march 2017 COPD History of kidney stones Urinary frequency and incontinence. On Detrol at home. Plan: Serial enzymes and EKGs. Echocardiogram. At present, continue aspirin full dose. We'll need to decide on anticoagulation after echo. Cardiology consult with patient's packing checker. Would need to watch for bradycardia and tolerance to negative chronotropic medications. Continue to monitor on telemetry. We'll also need to monitor her blood pressure closely now that we are adding additional antihypertensive/negative chronotropic. Hold Norvasc. Hold meloxicam. Resume rest of medications. DVT prophylaxis with Lovenox. Discussed Condition With patient, ER physician Physician Certification 2 Midnight Certification Type: Admission for Inpatient Services Order for Inpatient Services The services are ordered in accordance with Medicare regulations or non- Medicare payer requirements, as applicable. In the case of services not specified as inpatient-only, they are appropriately provided as inpatient services in accordance with the 2-midnight benchmark. Estimated LOS (days): 3 days is the estimated time the patient will need to remain in the hospital, assuming treatment plan goals are met and no additional complications. Post-Hospital Plan: Home Qian Oliver MD Nov 07, 2017 13:30
[2017-11-07] MEDS ORDERED: ASPIRIN EC 325 MG TABEC PO ONE (14:00)
[2017-11-07] MEDS ORDERED: PILL SPLITTER OTHER PRN (14:15)
[2017-11-07] MEDS: DILTIAZEM-CD 120 MG CAP ER PO SCH (17:57)
[2017-11-07] MEDS: RIVAROXABAN 20 MG TAB PO SCH (17:57)
[2017-11-07] MEDS ORDERED: FAMOTIDINE 20 MG TAB PO SCH (21:00)
[2017-11-08] VITALS: BP 127/62; PULSE 86; RESP 18; TEMP 98.5; O2SAT 97
[2017-11-08 04:00] VITALS: BP 121/60; PULSE 78; RESP 17; TEMP 98.6; O2SAT 96
[2017-11-08 07:00] VITALS: PULSE 92
[2017-11-08 08:00] VITALS: BP 127/68; PULSE 76; RESP 28; TEMP 97.8
--- NOTE | 2017-11-08 08:00 | MB ---
cc: KRISTINA ANDRADE MD DATE OF CONSULTATION 11/07/2017 REASON FOR CONSULTATION New onset atrial fibrillation. HISTORY OF PRESENT ILLNESS Ms. Dill is a 67-year-old female who does have a history of hypertension, hyperlipidemia and COPD. She presented to the emergency room with palpitations. She has had several episodes. She noted that a week ago after she picked up some chlorine bottle, she had blurred vision. Currently she is asymptomatic. PAST MEDICAL HISTORY Significant for: 1. Hypertension 2. Hyperlipidemia 3. Aortic atherosclerosis 4. Bradycardia from beta-blockers term 5. Chest pain with a normal nuclear stress test and January 2017. 6. COPD 7. Diverticular disease 8. Fibromyalgia 9. Gastroesophageal reflux disease 10. Hiatal hernia 11. Irritable bowel 12. Mild mitral regurgitation 13. DVT PAST SURGICAL HISTORY Includes: 1. Cholecystectomy 2. ERCP 3. Hysterectomy 4. Knee surgery 5. Tonsillectomy SOCIAL HISTORY The patient is a former smoker. FAMILY HISTORY Positive for [place] in her mother. ALLERGIES ROBITUSSIN OUTPATIENT MEDICATIONS Include: 1. Enalapril 20 mg a day 2. Estradiol 3. Fenofibrate 4. Meloxicam 5. Nebulizer 6. Oxybutynin 7. Simvastatin 8. Tramadol 9. Amlodipine PHYSICAL EXAM VITAL SIGNS: Temperature 98.1, pulse 74, respiratory rate 20, blood pressure 137/60. GENERAL: She is a well-appearing female who is in no apparent distress. NECK: Her neck is free from JVD. LUNGS: The lungs are bilaterally clear to auscultation. CARDIOVASCULAR: On examination she has a normal S1 and S2. I did not appreciate any murmurs, rubs or gallops. ABDOMEN: The abdomen is soft. EXTREMITIES: The extremities are free from edema. Chest x-ray is negative for any acute disease. EKG shows normal sinus rhythm. Telemetry strips do show atrial fibrillation. IMPRESSION New-onset atrial fibrillation - The patient does have a history of palpitations and has never been diagnosed with atrial fibrillation. She is back in sinus rhythm currently. Her CHADS-VASc score is 3 or possibly 5 with a point for a female, hypertension, over 65, plus/minus two points for possible TIA. In any case, she would be best served with further anticoagulation. After discussion, she was recently on Xarelto and would prefer to be on that as she has many bottles at home. She is aware that there is no reversal agent. Her creatinine is normal. Regarding rate control, I would place her on low-dose Diltiazem and stop her Amlodipine. This will also necessitate changing of her simvastatin secondary medication interactions. Additionally, the patient has had a recent ischemia workup thus I do not feel we need that. A TSH in the morning would be helpful. If she remains in sinus rhythm, it would be reasonable for her to be discharged in the a.m. Hypertension - as above. We will discontinue the amlodipine to make room for the diltiazem. Lipids - Stop Simvastatin then start Atorvastatin secondary to med interactions. Kristina Andrade M.D. RACHEL/DAVIDA /4:09 PM /7:40 AM
[2017-11-08] MEDS: RIVAROXABAN 20 MG TAB PO SCH (08:26)
[2017-11-08] MEDS: SODIUM CHLORIDE 0.9% FLUSH 10 ML FLUSH IV FLUSH SCH (08:26)
[2017-11-08] MEDS: DILTIAZEM-CD 120 MG CAP ER PO SCH (08:26)
[2017-11-08] MEDS: PANTOPRAZOLE SOD 40 MG DELAYED RELEASE TAB PO SCH (08:27)
[2017-11-08] MEDS: TOLTERODINE TARTRATE 4 MG CAP LA PO SCH (08:27)
[2017-11-08] MEDS: ENALAPRIL MALEATE 10 MG TAB PO SCH (08:28)
[2017-11-08] MEDS: FENOFIBRATE 145 MG TAB PO SCH (08:28)
[2017-11-08] MEDS ORDERED: ENOXAPARIN SODIUM 40 MG/0.4 ML SYRINGE SQ SCH (09:00)
[2017-11-08] MEDS ORDERED: ASPIRIN EC 325 MG TABEC PO SCH (09:00)
[2017-11-08] MEDS ORDERED: ESTRADIOL 1 MG TAB PO SCH (09:00)
--- NOTE | 2017-11-08 09:22 | EKG ---
Date Performed: 11/06/2017 Time Performed: 16:56:12 PTAGE: 67 years EKG: ATRIAL FIBRILLATION WITH RAPID VENTRICULAR RESPONSE NONSPECIFIC ST & T-WAVE ABNORMALITY ABN ORMAL ECG Compared to PREVIOUS TRACING , the atrial fibrillation with rapid ventricular response has replaced S inus rhythm . ST changes are new, consider ischemia. PREVIOUS TRACIN11/21/2016 16.23 DOCTOR: Niko Perez Interpretating Date/Time 11/08/2017 09:21:41
--- NOTE | 2017-11-08 09:22 | EKG ---
Date Performed: 11/07/2017 Time Performed: 11:03:03 PTAGE: 67 years EKG: Sinus rhythm NONSPECIFIC T-WAVE ABNORMALITY BORDERLINE ECG Compared to PREVIOUS TRACING , sinus rhythm has replaced atrial fibrillation. Previously seen ST depr ession has improved. PREVIOUS TRACIN11/06/2017 16.56 DOCTOR: Niko Perez Interpretating Date/Time 11/08/2017 09:22:08
[2017-11-08] MEDS ORDERED: ACETAMINOPHEN 325 MG TAB PO PRN (10:45)
[2017-11-08 12:00] VITALS: BP 130/62; PULSE 82; RESP 21; TEMP 98.5
[2017-11-08] MEDS ORDERED: XARE20TA PO (12:58)
[2017-11-08] MEDS ORDERED: DILT120C50 PO (12:58)
[2017-11-08] MEDS ORDERED: ATOR40TA16 PO (12:59)
--- NOTE | 2017-11-08 12:59 | HHI.DCPOC ---
Discharge Care Plan Diagnosis: (1) Atrial fibrillation with RVR Goals to Promote Your Health * To prevent worsening of your condition and complications * To maintain your health at the optimal level Directions to Meet Your Goals Take your medications as prescribed Follow your dietary instruction Follow activity as directed Keep your appointments as scheduled Take your immunizations and boosters as scheduled If your symptoms worsen call your PCP, if no PCP go to Urgent Care Center or Emergency Room Smoking is Dangerous to Your Health. Avoid second hand smoke Call the 24-hour hour crisis hotline for domestic abuse at Swapnil Boo MD Nov 08, 2017 12:59
--- NOTE | 2017-11-08 13:02 | HHI.PR ---
Subjective Remarks Nursing denies any deterioration since last night. Stated the patient ambulated without difficult. Patient went to the home. Denies any palpitations this morning. Objective Vital Signs Date Time Temp Pulse Resp B/P (MAP) Pulse Ox O2 Delivery O2 Flow Rate FiO2 11/08/17 08:00 76 11/08/17 08:00 97.8 76 28 127/68 (87) 11/08/17 07:00 92 11/08/17 04:00 98.6 78 17 121/60 (80) 96 11/08/17 00:00 98.5 86 18 127/62 (83) 97 11/07/17 23:20 77 11/07/17 20:00 97.4 78 26 145/61 (89) 98 11/07/17 18:00 80 29 11/07/17 17:57 98.5 84 35 135/67 (89) 11/07/17 16:59 74 11/07/17 16:59 68 I/O 11/07/17 11/07/17 11/07/17 11/08/17 11/08/17 11/08/17 07:00 15:00 23:00 07:00 15:00 23:00 Intake Total 480 ml 600 ml Output Total 800 ml Balance -320 ml 600 ml Intake Oral 480 ml 600 ml Output Urine Total 800 ml # Voids 4 4 # Bowel Movements 0 1 Result Diagram: 11/07/17 0425 11/07/17 0425 Objective Remarks Heart sounds demonstrate regular rate rhythm, no murmurs Sitting up in bed, no acute distress, clear lungs bilaterally A/P Assessment and Plan No ischemic workup warranted per cardiology at this time. A. fib with RVR. Now clinically stable with Cardizem by mouth. Stable for discharge from cardiology standpoint. Patient will be resumed on her Xarelto upon discharge given her stroke risk. We'll also be discharged on Lipitor. stopping norvasc. Patient has been maximal benefit from hospitalization and is clinically stable for discharge. Swapnil Boo MD Nov 08, 2017 13:02
--- NOTE | 2017-11-08 18:51 | ECHRPT ---
Indication: a fib CONCLUSIONS The left ventricular systolic function is normal with an estimated ejection fraction in the range of 55-60%. Doppler parameters are consistent with impaired left ventricular relaxtion (grade 1 diastolic dysfun ction). Trace mitral valve regurgitation. There is mild tricuspid valve regurgitation. BP: / HR: Rhythm: MEASUREMENTS (Male / Female) Normal Values Technical Quality:Good 2D ECHO LV Diastolic Diameter PLAX 3.9 cm 4.2 - 5.9 / 3.9 - 5.3 cm LV Systolic Diameter PLAX 2.8 cm IVS Diastolic Thickness 1.3 cm 0.6 - 1.0 / 0.6 - 0.9 cm LVPW Diastolic Thickness 1.1 cm 0.6 - 1.0 / 0.6 - 0.9 cm LV Relative Wall Thickness 0.6 RV Internal Dim ED PLAX 3.2 cm M-MODE Aortic Root Diameter MM 2.7 cm LA Systolic Diameter MM 3.1 cm LA Ao Ratio MM 1.1 AV Cusp Separation MM 2.2 cm DOPPLER Mitral E Point Velocity 42.9 cm/s Mitral A Point Velocity 71.1 cm/s Mitral E to A Ratio 0.6 LV E' Lateral Velocity 6.9 cm/s Mitral E to LV E' Lateral Ratio 6.2 LV E' Septal Velocity 6.5 cm/s Mitral E to LV E' Septal Ratio 6.6 TR Peak Velocity 236.0 cm/s TR Peak Gradient 22.3 mmHg Right Atrial Pressure 10.0 mmHg Pulmonary Artery Systolic Pressu 32.3 mmHg Right Ventricular Systolic Press 32.3 mmHg FINDINGS LEFT VENTRICLE Normal left ventricular size. Mild concentric left ventricular hypertrophy. The left ventricular systolic function is normal with an estimated ejection fraction in the range of 55-60%. Doppler parameters are consistent with impaired left ventricular relaxtion (grade 1 diastolic dysfun ction). RIGHT VENTRICLE Normal right ventricular size and systolic function. LEFT ATRIUM The left atrial size is normal. RIGHT ATRIUM The right atrial size is normal. ATRIAL SEPTUM Normal atrial septal thickness without atrial level shunting by limited color doppler interrogation. AORTA The aortic root and proximal ascending aorta are normal in size on limited imaging. MITRAL VALVE Structurally normal mitral valve. Trace mitral valve regurgitation. No mitral valve stenosis. AORTIC VALVE Trileaflet aortic valve. No aortic valve stenosis or regurgitation. Aortic valve sclerosis is present. TRICUSPID VALVE Structurally normal tricuspid valve. There is mild tricuspid valve regurgitation. The estimated pulmonary arterial pressure is 32.3 mmHg. PULMONARY VALVE No pulmonary valve regurgitation or stenosis. VESSELS The inferior vena cava is normal in size. PERICARDIUM No pericardial effusion. Arpan Go DO (Electronically Signed) Final Date:08 November 2017 18:50
== END 2017-11-08 15:49 | disposition home or self-care (01) | DRG 310 ==
LOC: PHED 16:40 → PHEDA 18:10 → PHICU 21:26
PROVIDERS: ADMIT Hospitalist; ATTEND Hospitalist
DX: I48.91 Unspecified atrial fibrillation (principal); J44.9 Chronic obstructive pulmonary disease, unspecified; I10 Essential (primary) hypertension; M79.7 Fibromyalgia; E78.5 Hyperlipidemia, unspecified; I70.0 Atherosclerosis of aorta; K21.9 Gastro-esophageal reflux disease without esophagitis; I34.0 Nonrheumatic mitral (valve) insufficiency; M15.9 Polyosteoarthritis, unspecified; Z82.49 Family history of ischemic heart disease and other diseases of the circulatory system; Z86.718 Personal history of other venous thrombosis and embolism; Z87.891 Personal history of nicotine dependence; Z96.651 Presence of right artificial knee joint
CPT/HCPCS: 71045; 80048; 80053; 82550; 82552; 83735; 83880; 84484; 85025; 85610; 85730; 93005; 93306; 96374; 96375; J7030

== ENCOUNTER 2018-02-22 06:03 | Observation (INO) | payer MEDICARE, OTHER ==
[~2018-02-22] VITALS: Ht 165.1 cm; Wt 87.6 kg
[2018-02-22] VITALS (28 sets, daily range): BP systolic 98–156; BP diastolic 47–96; PULSE 52–155; RESP 16–39; TEMP 97.4–98.4; O2SAT 95–100
[~2018-02-22 06:03] MED LIST changes: -AMLO5TAB2 PO; +ATOR40TA16 PO; +DILT120C50 PO; -NORC5TAB PO; +RANI300T PO; -TRAM50TA PO; +XARE20TA PO
[2018-02-22] MEDS ORDERED: SODIUM CHLORIDE 0.9% FLUSH 10 ML FLUSH IVF PRN (06:15)
[2018-02-22] MEDS ORDERED: SODIUM CHLOR 0.9% 1000 ML INJ 1,000 ML IV SCH (06:15)
[2018-02-22] MEDS ORDERED: METOPROLOL TARTRATE 5 MG/5 ML VIAL IV PUSH ONE ×2 (06:15→06:45)
--- NOTE | 2018-02-22 06:51 | PD ---
HPI Chief Complaint: Cardiac Complaint Time Seen by Provider: 06:13 Travel History International Travel<30 days: No Contact w/Intl Traveler<30days: No Traveled to known affect area: No History of Present Illness HPI 67-year-old female presents to the emergency department by private transportation for complaint of palpitations. Patient has history of atrial fibrillation and has had atrial fibrillation with RVR in the past. No report of chest pain or shortness of breath near syncope or syncope. Patient states that she awakened at 4 AM with palpitations. Patient attempted vagal maneuvers at home but was unsuccessful. Patient presents now for further evaluation. Patient is currently on amlodipine only for her blood pressure and discontinued Cardizem at her target setter recommendation. Patient is supposedly going to undergo cardiac catheterization [facility] Past Medical History Narrative Medical Atrial fibrillation COPD dyslipidemia; tobacco use; nursing notes reviewed Hx Anticoagulant Therapy: Yes (XERELTO) Arthritis: Yes (KNEES AND HIPS) Autoimmune Disease: No Blood Disorders: No Anxiety: Yes Depression: Yes Heart Rhythm Problems: No Cancer: No Cardiac Catheterization: Yes Cardiovascular Problems: Yes High Cholesterol: Yes Chemotherapy: No Chest Pain: Yes Congestive Heart Failure: No COPD: Yes Cerebrovascular Accident: No Diabetes: No Diminished Hearing: No Diverticulitis: Yes Endocrine: No Fibromyalgia: Yes Gastrointestinal Disorders: Yes GERD: No Genitourinary: Yes (occas. incon of urine) Headaches: Yes Hepatitis: No Hiatal Hernia: Yes Hypertension: Yes Immune Disorder: No Implanted Vascular Access Dvce: Yes Musculoskeletal: Yes Neurologic: Yes Psychiatric: Yes Reproductive: No Respiratory: Yes (COPD) Immunizations Current: Yes Myocardial Infarction: No Radiation Therapy: No Seizures: No Ulcer: No Tetanus Vaccination: Unknown Influenza Vaccination: Yes PNEUMOCCOCAL Vaccine (Year): 1 ?: Not Menopausal: Yes Past Surgical History Abdominal Surgery: Yes (GALLBLADDER) AICD: No Cardiac Surgery: No Cholecystectomy: Yes Coronary Artery Bypass Graft: No Ear Surgery: No Endocrine Surgery: No Eye Surgery: No Genitourinary Surgery: Yes (ERCP) Gynecologic Surgery: No Hysterectomy: Yes Insulin Pump: No Joint Replacement: Yes (RT KNEE) Neurologic Surgery: No Oral Surgery: Yes (TONSILLECTOMY) Pacemaker: No Thoracic Surgery: No Tonsillectomy: Yes Other Surgery: Yes (bilat knee ) Social History Alcohol Use: Yes (RARELY beer) Tobacco Use: No (quit 30 years ago) Substance Use: No Allergies-Medications (Allergen,Severity, Reaction): Coded Allergies: guaifenesin (Unverified Allergy, Severe, PASSES OUT, 02/22/18) Uncoded Allergies: ALL TUSSINS (Allergy, Mild, PASSES OUT, 08/11/16) . Reported Meds & Prescriptions Reported Meds & Active Scripts Active Atorvastatin (Atorvastatin Calcium) 40 Mg Tab 40 Mg PO HS Diltiazem CD 24 HR 120 Mg Caper 120 Mg PO DAILY Xarelto (Rivaroxaban) 20 Mg Tab 20 Mg PO DAILY Ventolin Hfa 18 GM Inh (Albuterol Sulfate) 90 Mcg/Act Aer 2 Puff INH Q4H PRN Duoneb (Ipratropium-Albuterol Neb) 0.5-2.5 Mg/3 Ml Neb 1 Nebule INH Q6HR NEB Reported Ranitidine (Ranitidine HCl) 300 Mg Tab 300 Mg PO HS Oxybutynin ER 24 HR (Oxybutynin Chloride) 10 Mg Tab 20 Mg PO BID Voltaren-Xr (Diclofenac Sodium) 100 Mg Tab.er.24h Unknown Dose Enalapril (Enalapril Maleate) 20 Mg Tab 20 Mg PO DAILY Meloxicam 15 Mg Tab 15 Mg PO DAILY PRN Estradiol 0.5 Mg Tab 0.5 Mg PO DAILY Tricor (Fenofibrate) Unknown Strength Tab 160 Mg PO DAILY Tke with food. Protonix (Pantoprazole Sodium) 40 Mg Tab 40 Mg PO DAILY Narrative Medication Patient is currently not taking diltiazem Review of Systems Except as stated in HPI: all other systems reviewed are Neg General / Constitutional: No: Fever, Chills HENT: No: Congestion Cardiovascular: Positive: Palpitations, No: Chest Pain or Discomfort, Diaphoresis, Syncope Respiratory: No: Shortness of Breath Gastrointestinal: No: Nausea, Vomiting, Abdominal Pain Genitourinary: Positive: Frequency, No: Dysuria Musculoskeletal: No: Myalgias, Arthralgias Skin: No Rash Neurologic: No: Weakness, Dizziness, Syncope Psychiatric: Positive: Anxiety Hematologic/Lymphatic: No: Lymph Node Enlargement Physical Exam Narrative GENERAL: Well-developed well-nourished female in no acute distress or respiratory distress SKIN: Warm and dry. HEAD: Normocephalic. EYES: No scleral icterus. No injection or drainage. NECK: Supple, trachea midline. No JVD or lymphadenopathy. CARDIOVASCULAR: Increased irregularly irregular rate and rhythm without murmurs , gallops, or rubs. RESPIRATORY: Breath sounds equal bilaterally. No accessory muscle use. GASTROINTESTINAL: Abdomen soft, non-tender, nondistended. MUSCULOSKELETAL: No cyanosis, or edema. BACK: Nontender without obvious deformity. No CVA tenderness. Data Data Last Documented VS Vital Signs Date Time Temp Pulse Resp B/P (MAP) Pulse Ox O2 Delivery O2 Flow Rate FiO2 02/22/18 06:41 142/90 (107) 156/96 (116) 02/22/18 06:25 97 Room Air 02/22/18 06:14 155 02/22/18 06:12 98.4 18 Orders Orders Electrocardiogram (02/22/18 06:13) Basic Metabolic Panel (Bmp) (02/22/18 06:13) Ckmb (Isoenzyme) Profile (02/22/18 06:13) Complete Blood Count With Diff (02/22/18 06:13) Magnesium (Mg) (02/22/18 06:13) Prothrombin Time / Inr (Pt) (02/22/18 06:13) Act Partial Throm Time (Ptt) (02/22/18 06:13) Troponin I (02/22/18 06:13) Ecg Monitoring (02/22/18 06:13) Bilateral Bp Monitoring (02/22/18 06:13) Iv Access Insert/Monitor (02/22/18 06:13) Oximetry (02/22/18 06:13) Oxygen Administration (02/22/18 06:13) Sodium Chloride 0.9% Flush (Ns Flush) (02/22/18 06:15) Metoprolol Tartrate Inj (Lopressor Inj) (02/22/18 06:15) Sodium Chlor 0.9% 1000 Ml Inj (Ns 1000 M (02/22/18 06:15) Chest, Single Ap (02/22/18 ) Metoprolol Tartrate Inj (Lopressor Inj) (02/22/18 06:45) Diltiazem (Cardizem) (02/22/18 07:15) Labs Laboratory Tests Test 02/22/18 06:26 White Blood Count 4.2 TH/MM3 Red Blood Count 4.87 MIL/MM3 Hemoglobin 14.7 GM/DL Hematocrit 44.5 % Mean Corpuscular Volume 91.4 FL Mean Corpuscular Hemoglobin 30.1 PG Mean Corpuscular Hemoglobin Concent 33.0 % Red Cell Distribution Width 11.7 % Platelet Count 202 TH/MM3 Mean Platelet Volume 9.2 FL Neutrophils (%) (Auto) 56.4 % Lymphocytes (%) (Auto) 28.5 % Monocytes (%) (Auto) 8.3 % Eosinophils (%) (Auto) 4.9 % Basophils (%) (Auto) 1.9 % Neutrophils # (Auto) 2.4 TH/MM3 Lymphocytes # (Auto) 1.2 TH/MM3 Monocytes # (Auto) 0.3 TH/MM3 Eosinophils # (Auto) 0.2 TH/MM3 Basophils # (Auto) 0.1 TH/MM3 CBC Comment DIFF FINAL Differential Comment MDM Medical Decision Making Medical Screen Exam Complete: Yes Emergency Medical Condition: Yes Medical Record Reviewed: Yes Interpretation(s) EKG: Atrial fibrillation with RVR rate [address] changes no ST elevation Last Impressions Chest X-Ray 02/22/18 0000 Signed Impressions: CONCLUSION: No acute cardiopulmonary disease demonstrated. Vital Signs Date Time Temp Pulse Resp B/P (MAP) Pulse Ox O2 Delivery O2 Flow Rate FiO2 02/22/18 06:41 142/90 (107) 156/96 (116) 02/22/18 06:25 97 Room Air 02/22/18 06:25 97 02/22/18 06:14 155 97 Room Air 02/22/18 06:12 98.4 155 18 134/95 (108) 97 Differential Diagnosis Atrial fibrillation with RVR, arrhythmia, ACS, anemia, thyroid disorder Narrative Course Patient placed on compliance monitor IV and continuous pulse oximetry IV access obtained specimens collected and sent for resulting EKG performed which is consistent with atrial fibrillation with RVR rate [address] elevation injury pattern noted; vagal maneuvers attempted without success; patient given normal saline infusion and metoprolol 5 mg IV ordered for administration slow push Patient signed some response to 5 mg of metoprolol additional dose of metoprolol 5 mg IV ordered Lab values pending; patient reports good rate control by history to cardizem -- will give an oral dose cardizem 60 mg po. @ 07:00 care signed over to Dr Hyde Diagnosis Primary Impression: Atrial fibrillation with RVR Anahi Eden MD February 22, 2018 06:51
--- NOTE | 2018-02-22 06:51 | RADRPT ---
EXAM DATE: 02/22/2018 6:47 AM EDT AGE/SEX: 67 years / Female INDICATIONS: Irregular heart rate starting today CLINICAL DATA: This is the patient's initial encounter. Patient reports that signs and symptoms have been present for 1 day and indicates a pain score of 0/10. MEDICAL/SURGICAL HISTORY: . Hypertension. Chronic obstructive pulmonary disease. Hiatal hernia. AFIB None. COMPARISON: PO, CHEST SINGLE AP, 11/06/2017. . FINDINGS: A single AP view of the chest demonstrates the lungs to be symmetrically aerated without evidence of mass, infiltrate or effusion. The cardiomediastinal contours are unremarkable. Osseous structures a re intact. CONCLUSION: No acute cardiopulmonary disease demonstrated. Electronically signed by: Goldy Salcedo MD 02/22/2018 6:49 AM EDT
[2018-02-22 06:52] LABS: AUTOMATED NEUTROPHIL # 2.4 TH/MM3 (1.8-7.7); BASOPHIL # 0.1 TH/MM3 (0-0.2); BASOPHIL % 1.9 % (0.0-2.0); EOSINOPHIL # 0.2 TH/MM3 (0-0.4); EOSINOPHIL % 4.9 % (0.0-4.0); HEMATOCRIT 44.5 % (35.0-46.0); HEMOGLOBIN 14.7 GM/DL (11.6-15.3); LYMPH % 28.5 % (9.0-44.0); LYMPHOCYTE # 1.2 TH/MM3 (1.0-4.8); MEAN CELL VOLUME 91.4 FL (80.0-100.0); MEAN CORPUSCULAR HEMOGLOBIN 30.1 PG (27.0-34.0); MEAN PLATELET VOLUME 9.2 FL (7.0-11.0); MONO % 8.3 % (0.0-8.0); MONOCYTE # 0.3 TH/MM3 (0-0.9); NEUT % 56.4 % (16.0-70.0); PLATELET COUNT 202 TH/MM3 (150-450); RED BLOOD COUNT 4.87 MIL/MM3 (4.00-5.30); RED CELL DISTRIBUTION WIDTH 11.7 % (11.6-17.2); WHITE BLOOD COUNT 4.2 TH/MM3 (4.0-11.0)
[2018-02-22 07:10] LABS: CHLORIDE 111 MEQ/L (98-107); SODIUM (NA) 145 MEQ/L (136-145)
[2018-02-22 07:13] LABS: CALCIUM 9.9 MG/DL (8.5-10.1)
[2018-02-22 07:14] LABS: BICARBONATE 24.8 MEQ/L (21.0-32.0); BLOOD UREA NITROGEN 15 MG/DL (7-18); GLUCOSE,RANDOM 110 MG/DL (74-106); MAGNESIUM 2.2 MG/DL (1.5-2.5)
[2018-02-22 07:15] LABS: INTERNATIONAL NORMALIZED RATIO 1.1 RATIO; PROTHROMBIN TIME - PATIENT 11.1 SEC (9.8-11.6)
[2018-02-22] MEDS ORDERED: DILTIAZEM HCL 60 MG TAB PO ONE (07:15)
[2018-02-22 07:17] LABS: CREATININE 0.69 MG/DL (0.50-1.00); GLOMERULAR FILTRATION RATE 85 ML/MIN (>89)
[2018-02-22 07:22] LABS: TROPONIN I LESS THAN 0.02 NG/ML (0.02-0.05)
[2018-02-22] MEDS ORDERED: ONDANSETRON HCL 4 MG/2 ML VIAL IVP PRN (08:15)
[2018-02-22] MEDS ORDERED: MAGNESIUM HYDROXIDE SUSP 30 ML CUP PO PRN (08:15)
[2018-02-22] MEDS ORDERED: SODIUM CHLORIDE 0.9% FLUSH 10 ML FLUSH IV FLUSH PRN (08:15)
[2018-02-22] MEDS ORDERED: ACETAMINOPHEN 325 MG TAB PO PRN ×2 (08:15)
[2018-02-22] MEDS ORDERED: NALOXONE HCL 0.4 MG/ML AMP IV PUSH PRN (08:15)
[2018-02-22] MEDS: SODIUM CHLORIDE 0.9% FLUSH 10 ML FLUSH IV FLUSH SCH ×2 (09:00→20:15)
[2018-02-22] MEDS ORDERED: CHLORHEXIDINE GLUCONATE 2 % 1 PACK (2 CLOTHS)(extra cloths) TOPICAL PRN (09:00)
--- NOTE | 2018-02-22 12:55 | MB ---
cc: Derick Dean MD DATE: 02/22/2018 REASON FOR CONSULTATION: Atrial fibrillation. HISTORY OF PRESENT ILLNESS: The patient is a 67-year-old white female, followed in our office by Dr. Kaci Pulido, with a history of fibromyalgia, hyperlipidemia, hypertension, paroxysmal atrial fibrillation, right lower extremity deep venous thrombosis and transient ischemic attack, who came to the emergency department in [place] due to recurrent atrial fibrillation. At about 4:30 a.m. this morning, she developed fluttering palpitations. She checked her heart rate, and it was mildly elevated. Over the next couple hours, the heart rate continued to rise, so she came to the emergency department for further evaluation and treatment. She was given intravenous metoprolol in the emergency room with eventual confucianism of sinus rhythm. Chronically, she has intermittent left-sided sharp chest pains, most often in certain positions while lying down at night. When she sits up and drinks a glass of water, these chest pains resolve. She cannot recall any of these chest discomforts during the daytime. The patient states she was being considered for a coronary CT angiogram by Dr. Pulido in the near future. She denies dizziness, syncope, near syncope, pedal edema, pleurisy, paroxysmal nocturnal dyspnea. She also states that Cardizem and beta blockers in the past excessively reduced her heart rate. PAST MEDICAL HISTORY: 1. Fibromyalgia. 2. Irritable bowel syndrome. 3. Hyperlipidemia. 4. Hypertension. 5. Paroxysmal atrial fibrillation diagnosed about 3 months ago. 6. According to the patient, right lower extremity deep venous thrombosis after knee surgery 10/2017. 7. Possible history of transient ischemic attack. 8. Diverticulitis. CARDIAC MEDICATIONS AT HOME: 1. Xarelto 20 mg daily. 2. Atorvastatin 40 mg at bedtime. 3. Tricor 160 mg daily. 4. Enalapril 20 mg daily. FAMILY HISTORY: Noncontributory. SOCIAL HISTORY: The patient is a former smoker. She denies alcohol abuse. REVIEW OF SYSTEMS: As in the history of present illness, otherwise negative or noncontributory. She also denies headache, unilateral weakness or numbness, abdominal pain, melena, dyspepsia, bright red blood per rectum. PHYSICAL EXAMINATION: VITAL SIGNS: Her blood pressure 103/52 with a pulse of 52, respirations 20. GENERAL: She is a well-developed, well-nourished white female, in no acute distress. NECK: Jugular venous pressure is normal. Carotid pulses are 2+ bilaterally and without bruits. CHEST: Reveals clear lungs pierce. CARDIAC: She has a bradycardic, regular rhythm without S3, S4, or murmur. ABDOMEN: She has a soft, nontender abdomen. Bowel sounds are present. There is no definite hepatosplenomegaly. EXTREMITIES: Reveals no clubbing, cyanosis or edema. EKG: Currently not in the computer and I am unable to find it in her chart. IMAGING STUDIES: Chest x-ray shows no acute disease. LABORATORY DATA: Includes normal CBC. Potassium 3.6, BUN 15, creatinine 0.69. CK 119, troponin less than 0.02. IMPRESSION: Recurrent atrial fibrillation in this 67-year-old white female with a history of paroxysmal atrial fibrillation diagnosed about 3 months ago, history of hypertension, hyperlipidemia, possible history of right lower extremity deep venous thrombosis. At this time, she is back in sinus bradycardia. There is no definite evidence for acute coronary syndrome or congestive heart failure. She had an unremarkable echocardiogram 3 months ago. According to the patient, she was being considered for flecainide antiarrhythmic drug therapy, but was to undergo a coronary CT angiogram first to make sure she had no underlying severe coronary disease. In addition, she apparently has had difficulties with excessive bradycardia while on Cardizem as well as beta liz therapy. RECOMMENDATIONS: 1. Later today, start Flecainide 100 mg b.i.d. 2. She can be discharged home later today or tomorrow morning from a cardiac standpoint. MD SHENA Stroud/EDYTA , 12:08 PM , 12:54 PM ERIKA
--- NOTE | 2018-02-22 12:56 | HHI.HP ---
HPI Service [facility] Primary Care Physician Non-Staff Admission Diagnosis A. fib with RVR Diagnoses: (1) Atrial fibrillation with RVR Chief Complaint: Heart palpitations Travel History International Travel<30 Days: No Contact w/Intl Traveler <30 Da: No Traveled to Known Affected Are: No History of Present Illness 67-year-old female with history of atrial fibrillation, hypertension, presented to the ED for evaluation of heart palpitation which started around 4 AM this morning as patient was sleeping. Initially felt her heart racing, with a mildly elevated heart rate. However few hours after her rate went over 150s and remained sustain, without any shortness of breath or chest pain. Vision state, she has been off Cardizem over the past 1 month due to side effects. She denies any febrile episode and has no GI bleed. While in the ED, patient was given IV Lopressor which eventually led to a sinus rhythm. Cardiology was consulted. Review of Systems Except as stated in HPI: all other systems reviewed are Neg Past Family Social History Past Medical History Hypertension Hyperlipidemia Hypertriglyceridemia Fibromyalgia Interval bowel syndrome History diverticulitis Degenerative joint disease of the right knee History of pleurisy Depression Hiatal hernia Past Surgical History Hypertension Tonsillectomy Cholecystectomy Left knee partial knee replacement Right knee meniscus surgery Hysterectomy Cardiac catheterization Allergies: Coded Allergies: guaifenesin (Unverified Allergy, Severe, PASSES OUT, 02/22/18) Uncoded Allergies: ALL TUSSINS (Allergy, Mild, PASSES OUT, 08/11/16) . Family History Strong family history of heart disease, diabetes, hypertension, hyperlipidemia Social History Patient denies tobacco, alcohol or illicit drug intake Physical Exam Vital Signs Vital Signs Date Time Temp Pulse Resp B/P (MAP) Pulse Ox O2 Delivery O2 Flow Rate FiO2 02/22/18 12:00 97.7 60 39 114/53 (73) 97 02/22/18 11:00 52 21 103/52 (69) 97 02/22/18 10:00 60 32 110/47 (68) 99 02/22/18 09:20 97.4 115/58 (77) 02/22/18 09:15 97.4 60 16 115/58 (77) 100 02/22/18 08:46 89 16 103/68 (80) 99 02/22/18 07:40 91 16 107/78 (88) 99 Room Air 02/22/18 07:18 105 16 98/61 (73) 97 Room Air 02/22/18 07:15 110 16 98 Room Air 02/22/18 06:41 142/90 (107) 156/96 (116) 02/22/18 06:25 97 Room Air 02/22/18 06:25 97 02/22/18 06:14 155 97 Room Air 02/22/18 06:12 98.4 155 18 134/95 (108) 97 Physical Exam GENERAL: This is a well-nourished, well-developed patient, in no apparent distress. SKIN: No rashes, ecchymoses or lesions. Cool and dry. HEAD: Atraumatic. Normocephalic. No temporal or scalp tenderness. EYES: Pupils equal round and reactive. Extraocular motions intact. No scleral icterus. No injection or drainage. ENT: Nose without bleeding, purulent drainage or septal hematoma. Throat without erythema, tonsillar hypertrophy or exudate. Uvula midline. Airway patent. NECK: Trachea midline. No JVD or lymphadenopathy. Supple, nontender, no meningeal signs. CARDIOVASCULAR: Irregular regular rate and rhythm without murmurs, gallops, or rubs. RESPIRATORY: Clear to auscultation. Breath sounds equal bilaterally. No wheezes , rales, or rhonchi. GASTROINTESTINAL: Abdomen soft, non-tender, nondistended. No hepato-splenomegaly , or palpable masses. No guarding. MUSCULOSKELETAL: Extremities without clubbing, cyanosis, or edema. No joint tenderness, effusion, or edema noted. No calf tenderness. Negative Homans sign bilaterally. NEUROLOGICAL: Awake and alert. Cranial nerves II through XII intact. Motor and sensory grossly within normal limits. Five out of 5 muscle strength in all muscle groups. Normal speech. Laboratory Laboratory Tests Test 02/22/18 06:26 02/22/18 09:40 White Blood Count 4.2 Red Blood Count 4.87 Hemoglobin 14.7 Hematocrit 44.5 Mean Corpuscular Volume 91.4 Mean Corpuscular Hemoglobin 30.1 Mean Corpuscular Hemoglobin Concent 33.0 Red Cell Distribution Width 11.7 Platelet Count 202 Mean Platelet Volume 9.2 Neutrophils (%) (Auto) 56.4 Lymphocytes (%) (Auto) 28.5 Monocytes (%) (Auto) 8.3 Eosinophils (%) (Auto) 4.9 Basophils (%) (Auto) 1.9 Neutrophils # (Auto) 2.4 Lymphocytes # (Auto) 1.2 Monocytes # (Auto) 0.3 Eosinophils # (Auto) 0.2 Basophils # (Auto) 0.1 CBC Comment DIFF FINAL Differential Comment Prothrombin Time 11.1 Prothromb Time International Ratio 1.1 Activated Partial Thromboplast Time 33.7 Blood Urea Nitrogen 15 Creatinine 0.69 Random Glucose 110 Calcium Level 9.9 Magnesium Level 2.2 Sodium Level 145 Potassium Level 3.6 Chloride Level 111 Carbon Dioxide Level 24.8 Anion Gap 9 Estimat Glomerular Filtration Rate 85 Total Creatine Kinase 119 Creatine Kinase MB 2.1 Troponin I LESS THAN 0.02 Result Diagram: 02/22/18 0626 02/22/18 0626 Imaging Last Impressions Chest X-Ray 02/22/18 0000 Signed Impressions: CONCLUSION: No acute cardiopulmonary disease demonstrated. Septic Shock Reassessment Septic shock perfusion: reassessment completed Caprini VTE Risk Assessment Caprini VTE Risk Assessment: Mod/High Risk (score >= 2) Caprini Risk Assessment Model Point Value = 1 Point Value = 2 Point Value = 3 Point Value = 5 Age 41-60 Minor surgery BMI > 25 kg/m2 Swollen legs Varicose veins or History of unexplained or recurrent spontaneous Oral contraceptives or hormone replacement Sepsis (< 1 month) Serious lung disease, including pneumonia (< 1 month) Abnormal pulmonary function Acute myocardial infarction Congestive heart failure (< 1 month) History of inflammatory bowel disease Medical patient at bed rest Age 61-74 Arthroscopic surgery Major open surgery (> 45 min) Laparoscopic surgery (> 45 min) Malignancy Confined to bed (> 72 hours) Immobilizing plaster cast Central venous access Age >= 75 History of VTE Family history of VTE Factor V Leiden Prothrombin [id number] Lupus anticoagulant Anticardiolipin antibodies Elevated serum homocysteine Heparin-induced thrombocytopenia Other congenital or acquired thrombophilia Stroke (< 1 month) Elective arthroplasty Hip, pelvis, or leg fracture Acute spinal cord injury (< 1 month) Prophylaxis Regimen Total Risk Factor Score Risk Level Prophylaxis Regimen 0-1 Low Early ambulation 2 Moderate Order ONE of the following: *Sequential Compression Device (SCD) *Heparin 5000 units SQ BID 3-4 Higher Order ONE of the following medications: *Heparin 5000 units SQ TID *Enoxaparin/Lovenox 40 mg SQ daily (WT < 150 kg, CrCl > 30 mL/min) *Enoxaparin/Lovenox 30 mg SQ daily (WT < 150 kg, CrCl > 10-29 mL/min) *Enoxaparin/Lovenox 30 mg SQ BID (WT < 150 kg, CrCl > 30 mL/min) AND/OR *Sequential Compression Device (SCD) 5 or more Highest Order ONE of the following medications: *Heparin 5000 units SQ TID (Preferred with Epidurals) *Enoxaparin/Lovenox 40 mg SQ daily (WT < 150 kg, CrCl > 30 mL/min) *Enoxaparin/Lovenox 30 mg SQ daily (WT < 150 kg, CrCl > 10-29 mL/min) *Enoxaparin/Lovenox 30 mg SQ BID (WT < 150 kg, CrCl > 30 mL/min) AND *Sequential Compression Device (SCD) Assessment and Plan Problem List: (1) Atrial fibrillation with RVR ICD Code: I48.91 - Unspecified atrial fibrillation Status: Acute Assessment and Plan 67-year-old female with Atrial fibrillation with RVR Status post IV Lopressor push in ED 1 Appreciate input from cardiology Currently on flecainide 100 mg p.o. twice daily, which patient should start tonight Resume Xarelto Patient to follow outpatient for coronary CTA History of hyperlipidemia, BPH, hypertension, fibromyalgia and other chronic medical conditions Resume outpatient medications DVT prophylaxis: Xarelto Code Status Full code Discussed Condition With Patient, ED physician Destin Lal MD February 22, 2018 12:56
[2018-02-22] MEDS ORDERED: RESP: ALBUTEROL 2.5 MG/IPRATROPIUM 0.5 MG NEB (PRN) NEB (13:15)
[2018-02-22] MEDS ORDERED: ALBUTEROL SULFATE 90 MCG/ACT HFA 8 GM INHALER INH PRN (13:45)
[2018-02-22] MEDS ORDERED: PILL SPLITTER OTHER PRN (14:00)
--- NOTE | 2018-02-22 14:10 | EKG ---
Date Performed: 02/22/2018 Time Performed: 06:11:38 PTAGE: 67 years EKG: ATRIAL FIBRILLATION WITH RAPID VENTRICULAR RESPONSE NONSPECIFIC ST & T-WAVE ABNORMALITY ABN ORMAL ECG Compared to PREVIOUS TRACING , there is a rhythm change from sinus to afib. ST-T changes more promine nt. PREVIOUS TRACIN11/07/2017 11.03 DOCTOR: Too Monzon Interpretating Date/Time 02/22/2018 14:10:21
[2018-02-22] MEDS: TOLTERODINE TARTRATE 4 MG CAP LA PO SCH (16:07)
[2018-02-22] MEDS ORDERED: CALCIUM CARBONATE 500 MG CHEWABLE TAB PO ONE (18:30)
[2018-02-22] MEDS: FLECAINIDE ACETATE 100 MG TAB PO SCH (20:15)
[2018-02-22] MEDS: FAMOTIDINE 20 MG TAB PO SCH (20:15)
[2018-02-22] MEDS ORDERED: ATORVASTATIN 40 MG TAB PO SCH (21:00)
[2018-02-23] VITALS (20 sets, daily range): BP systolic 112–168; BP diastolic 49–76; PULSE 66–98; RESP 15–50; TEMP 97.9–98; O2SAT 94–98
[2018-02-23] MEDS ORDERED: CHLORHEXIDINE GLUCONATE 2 % 1 PACK (2 CLOTHS)(taper/protocol) TOPICAL SCH (04:00)
[2018-02-23 06:04] LABS: AUTOMATED NEUTROPHIL # 3.1 TH/MM3 (1.8-7.7); BASOPHIL % 0.9 % (0.0-2.0); EOSINOPHIL # 0.2 TH/MM3 (0-0.4); EOSINOPHIL % 4.2 % (0.0-4.0); HEMATOCRIT 37.7 % (35.0-46.0); HEMOGLOBIN 13.1 GM/DL (11.6-15.3); LYMPH % 19.7 % (9.0-44.0); LYMPHOCYTE # 0.9 TH/MM3 (1.0-4.8); MEAN CELL VOLUME 91.1 FL (80.0-100.0); MEAN CORPUSCULAR HEMOGLOBIN 31.6 PG (27.0-34.0); MEAN CORPUSCULAR HGB CONC 34.7 % (32.0-36.0); MONO % 6.8 % (0.0-8.0); MONOCYTE # 0.3 TH/MM3 (0-0.9); NEUT % 68.4 % (16.0-70.0); PLATELET COUNT 189 TH/MM3 (150-450); RED BLOOD COUNT 4.14 MIL/MM3 (4.00-5.30); RED CELL DISTRIBUTION WIDTH 11.9 % (11.6-17.2); WHITE BLOOD COUNT 4.5 TH/MM3 (4.0-11.0)
[2018-02-23 06:09] LABS: CHLORIDE 111 MEQ/L (98-107); SODIUM (NA) 144 MEQ/L (136-145)
[2018-02-23 06:13] LABS: ALBUMIN 3.4 GM/DL (3.4-5.0); BICARBONATE 27.1 MEQ/L (21.0-32.0); BLOOD UREA NITROGEN 15 MG/DL (7-18); CALCIUM 9.2 MG/DL (8.5-10.1); GLUCOSE,RANDOM 96 MG/DL (74-106)
[2018-02-23 06:16] LABS: ALT (GPT) 30 U/L (10-53); AST (GOT) 31 U/L (15-37)
[2018-02-23 06:17] LABS: CREATININE 0.68 MG/DL (0.50-1.00); GLOMERULAR FILTRATION RATE 87 ML/MIN (>89)
[2018-02-23 06:18] LABS: TOTAL BILIRUBIN ADULT 0.7 MG/DL (0.2-1.0); TOTAL PROTEIN 6.4 GM/DL (6.4-8.2)
[2018-02-23 06:19] LABS: ALKALINE PHOSPHATASE 119 U/L (45-117)
[2018-02-23] MEDS ORDERED: FLEC100T PO (07:30)
--- NOTE | 2018-02-23 07:30 | HHI.DCPOC ---
Discharge Care Plan Diagnosis: (1) Atrial fibrillation with RVR Goals to Promote Your Health * To prevent worsening of your condition and complications * To maintain your health at the optimal level Directions to Meet Your Goals Take your medications as prescribed Follow your dietary instruction Follow activity as directed Keep your appointments as scheduled Take your immunizations and boosters as scheduled If your symptoms worsen call your PCP, if no PCP go to Urgent Care Center or Emergency Room Smoking is Dangerous to Your Health. Avoid second hand smoke Call the 24-hour hour crisis hotline for domestic abuse at [facility] February 23, 2018 07:30
[2018-02-23] MEDS: FLECAINIDE ACETATE 100 MG TAB PO SCH (08:52)
[2018-02-23] MEDS: TOLTERODINE TARTRATE 4 MG CAP LA PO SCH (08:52)
[2018-02-23] MEDS: FAMOTIDINE 20 MG TAB PO SCH (08:53)
[2018-02-23] MEDS: SODIUM CHLORIDE 0.9% FLUSH 10 ML FLUSH IV FLUSH SCH (08:54)
[2018-02-23] MEDS ORDERED: ENALAPRIL MALEATE 10 MG TAB PO SCH (09:00)
[2018-02-23] MEDS ORDERED: RIVAROXABAN 20 MG TAB PO SCH (09:00)
[2018-02-23] MEDS ORDERED: FENOFIBRATE 145 MG TAB PO SCH (09:00)
[2018-02-23] MEDS ORDERED: ESTRADIOL 1 MG TAB PO SCH (09:00)
--- NOTE | 2018-02-23 10:39 | HHI.PR ---
Subjective Remarks Follow-up Courtney lin with RVR February 23, 2018-patient seen and examined, currently rate controlled in no acute event overnight. Denies any heart palpitation or dizziness. Objective Vitals Vital Signs Date Time Temp Pulse Resp B/P (MAP) Pulse Ox O2 Delivery O2 Flow Rate FiO2 02/23/18 10:07 90 20 167/75 (105) 97 02/23/18 10:07 90 02/23/18 09:01 90 29 150/73 (98) 98 02/23/18 09:01 90 02/23/18 08:01 74 02/23/18 08:01 98.0 74 19 140/70 (93) 96 02/23/18 07:00 72 18 127/57 (80) 96 02/23/18 06:01 72 17 131/65 (87) 96 02/23/18 06:00 74 02/23/18 05:01 70 15 114/59 (77) 96 02/23/18 05:00 66 02/23/18 04:01 97.9 68 15 118/49 (72) 97 02/23/18 04:00 98 02/23/18 03:01 74 19 116/59 (78) 97 02/23/18 03:00 68 02/23/18 03:00 68 19 97 02/23/18 02:13 70 18 120/65 (83) 96 02/23/18 02:01 82 28 168/76 (106) 98 02/23/18 02:00 88 36 98 02/23/18 02:00 88 02/23/18 01:01 68 17 118/58 (78) 95 02/23/18 01:01 68 17 118/58 (78) 95 02/23/18 01:00 68 19 94 02/23/18 01:00 68 02/23/18 00:01 98.0 70 17 112/52 (72) 96 02/23/18 00:01 70 17 112/52 (72) 96 02/23/18 00:00 72 18 96 02/23/18 00:00 70 02/22/18 23:01 74 22 132/64 (86) 95 02/22/18 23:00 74 02/22/18 22:01 70 19 119/55 (76) 95 02/22/18 22:00 70 02/22/18 21:01 72 26 129/66 (87) 96 02/22/18 21:00 68 02/22/18 20:01 97.5 63 18 139/65 (89) 97 02/22/18 20:00 73 02/22/18 19:01 64 20 140/64 (89) 97 02/22/18 19:00 66 02/22/18 18:00 80 02/22/18 18:00 80 37 151/75 (100) 98 02/22/18 17:00 72 24 137/67 (90) 100 02/22/18 16:00 64 02/22/18 16:00 97.6 64 21 141/67 (91) 99 02/22/18 15:00 62 23 135/66 (89) 99 02/22/18 14:00 60 21 99/52 (68) 97 02/22/18 14:00 60 02/22/18 13:00 60 23 127/63 (84) 97 02/22/18 12:00 97.7 60 39 114/53 (73) 97 02/22/18 12:00 60 02/22/18 11:00 52 21 103/52 (69) 97 I/O 02/22/18 02/22/18 02/22/18 02/23/18 02/23/18 02/23/18 07:00 15:00 23:00 07:00 15:00 23:00 Intake Total 1315 ml 720 ml 500 ml Output Total 200 ml 750 ml 400 ml Balance 1115 ml -30 ml 100 ml Intake Oral 480 ml 720 ml 500 ml IV Total 835 ml Output Urine Total 200 ml 750 ml 400 ml # Bowel Movements 1 2 0 Result Diagram: 02/23/18 0536 02/23/18 0536 Imaging Last Impressions Chest X-Ray 02/22/18 0000 Signed Impressions: CONCLUSION: No acute cardiopulmonary disease demonstrated. Objective Remarks GENERAL: NAD SKIN: Warm and dry. HEAD: Normocephalic. EYES: No scleral icterus. No injection or drainage. NECK: Supple, trachea midline. No JVD or lymphadenopathy. CARDIOVASCULAR: Irregular regular rate and rhythm without murmurs, gallops, or rubs. RESPIRATORY: Breath sounds equal bilaterally. No accessory muscle use. GASTROINTESTINAL: Abdomen soft, non-tender, nondistended. MUSCULOSKELETAL: No cyanosis, or edema. BACK: Nontender without obvious deformity. No CVA tenderness. A/P Problem List: (1) Atrial fibrillation with RVR ICD Code: I48.91 - Unspecified atrial fibrillation Status: Acute Assessment and Plan 67-year-old female with Atrial fibrillation with RVR-currently rate controlled Status post IV Lopressor push in ED 1 Appreciate input from cardiology Continue flecainide 100 mg p.o. twice daily, Xarelto Patient to follow outpatient for coronary CTA History of hyperlipidemia, BPH, hypertension, fibromyalgia and other chronic medical conditions Continue outpatient medications DVT prophylaxis: Xarelto Discharge Planning Discharge patient to home Condition on discharge: Improved Regular Diet as tolerated Ad Tiana activity Rx written: See EMR Follow-up with primary care physician in 1 week Follow-up with cardiology Destin Lal MD February 23, 2018 10:39
== END 2018-02-23 11:50 | disposition home or self-care (01) ==
LOC: PHED 06:03 → PHEDA 07:53 → PHICU 08:55
PROVIDERS: ADMIT Hospitalist; ATTEND Hospitalist
DX: I48.0 Paroxysmal atrial fibrillation (principal); I82.5Z1 Chronic embolism and thrombosis of unspecified deep veins of right distal lower extremity; Z79.01 Long term (current) use of anticoagulants; I10 Essential (primary) hypertension; E78.5 Hyperlipidemia, unspecified; E78.1 Pure hyperglyceridemia; M79.7 Fibromyalgia; M17.11 Unilateral primary osteoarthritis, right knee; K57.92 Diverticulitis of intestine, part unspecified, without perforation or abscess without bleeding; K44.9 Diaphragmatic hernia without obstruction or gangrene; F32.9 Major depressive disorder, single episode, unspecified; Z96.652 Presence of left artificial knee joint; Z86.73 Personal history of transient ischemic attack (TIA), and cerebral infarction without residual deficits; R07.9 Chest pain, unspecified; K58.9 Irritable bowel syndrome, unspecified; Z79.899 Other long term (current) drug therapy
CPT/HCPCS: 71045; 80048; 80053; 82550; 82552; 83735; 84484; 85025; 85610; 85730; 87641; 93005; 96361; 96374; G0378; J7030